=== PATIENT | male | born 1945 | race Caucasian/White ===

== ENCOUNTER 2018-03-26 13:45 | Emergency (ER) | payer MEDICARE ==
--- OUTSIDE RECORDS SUMMARY | 2018-03-26 14:08 | XMS REPORT ---
:1945 External Reference #:[id number] Author Organization [facility] Address [address] [place] [address] Phone [phone] Care Team Providers Name Role Phone Venita Matos M.D. Care Team Information [employer] Unavailable Payers Type Date Identification Numbers Payment Provider Subscriber Commercial Effective: Policy Number: Alfred CHELE Brenda Margarita 2006 [id number] Expires: 2012 Group Name: [employer] [address] [address] PayID: [id number] KARLA Asher [id number] Medicare Primary Effective: Policy Number: Medicare - Bswny Giulia Macias Margarita 2011 [id number] Expires: 2017 Group Name: [employer] [address] PayID: [id number] [place] [address] Medigap Part B Effective: Policy Number: Alfred CHELE Giulia Macias Margarita 2006 [id number] Expires: 2009 Group Number: [id number] [address] [address] PayID: [id number] KARLA Asher [id number] Medigap Part B Effective: Policy Number: Alfred Gutierrez Margarita 2012 [id number] Expires: 2015 Group Name: [employer] [address] [address] PayID: [id number] KARLA Asher [id number] Medigap Part B Effective: 2015 Policy Number: [id number] Aarp Giulia Lora Expires: 2017 PayID: [id number] [address] [place] [address] Commercial Effective: Policy Number: Lorena Lora 2017 [id number] PayID: [id number] [employer] [address] [address] [place] [address] Problems Date Description Provider Status Onset: 09/26/2010 Migraine without aura, not CARLEEN CliftonP-C Active refractory Onset: 09/26/2010 Allergy Rosemarie Chris PA-C Active Family History Date Family Member(s) Problem(s) Comments Father Cancer, Skin - thinks had non-melanoma type Social History Type Date Description Comments Marital Status Lives With Spouse Occupation Works in [employer]. retired from [employer] 2010. Worked for [employer] for years, retired 2006 Cigarette Use Former Cigarette Smoker Quit smoking at age 36, smoked x 15 years Smoking Patient is a former smoker Allergies, Adverse Reactions, Alerts Date Description Reaction Status Severity Comments 03/02/2004 NKDA active 01/21/2007 Peanut active Throat Tightening Medications Medication Date Status Form Strength Qnty SIG Indications Ordering Provider Amor 02/08 Active Tablets 5mg 60tab 2 tab by I82.431 s mouth twice Heetderks a day for MD the first week, then 1 tab twice per day. Epinephrine 10/25 Active Solution 0.3mg/0.3 2unit use as Auto-Inject ML s directed for P. systemic Blegen, allergic M.D. reaction and call 911 Vitamin D-3 12/20 Active Capsules 1000Unit 1 by mouth Venita every day P. Blegen, M.D. Doxycycline 12/23 Hx Capsules 100mg 56cap 1 by mouth R50.9 Venita Hyclate s twice a day P. - x 4 weeks as Blegen, 02/06 directed for M.D. /2018 lyme disease- take with full glass of water Cephalexin 12/15 Hx Capsules 500mg 14cap 1 tab by L02.416 Shaheed s mouth three Heetderks - times a day. MD 12/23 Epipen 2-Everett 10/19 Hx Solution 0.3mg/0.3 1unit use as Auto-Inject ML s directed for P. - systemic Blegen, 10/25 allergic M.D. reaction and call 911 Epinephrine 09/06 Hx Solution 0.3mg/0.3 2unit use as Auto-Inject ML s directed for P. - systemic Blegen, 10/19 allergic M.D. reaction and call 911- wait to fill until patient calls Levofloxacin 09/06 Hx Tablets 500mg 10tab 1 tab by Venita s qday for 10 P. - days for Blegen, 12/23 sinusitis M.D. Augmentin 08/18 Hx Tablets 875-125mg 20tab 1 take by [email or web address] Shaheed s mouth tablet Catalino - every , 09/06 hours for days for infection. Do not fill until patient. Cetirizine HCL 12/08 Hx Tablets 10mg 1 by mouth Venita as needed P. - allergies Blegen, 08/18 (usually M.D. just needs in November) Magnesium 12/08 Hx Tablets 200mg 1 by mouth Venita every day P. - Blegen, 02/06 M.D. Doxycycline 12/05 Hx Tablets 100mg 2tabs 2 tab by [id number] Shaheed Monohydrate /2015 mouth once Catalino Lynch MD 12/08 Osteo Bi-Flex 09/08 Hx Tablets 250-200mg Venita P. Strength - Blegen, 08/18 M.D. Aspirin 09/08 Hx Chewtabs 81mg 1 by mouth Venita every day P. - Blegen, 02/08 M.D. Magnesium 12/20 Hx Tablets 200mg 1 by mouth Venita every day P. - Blegen, 09/08 M.D. Amoxicillin 10/16 Hx Tablets 500mg 40tab take 1 528.4 s tablet by Glenn - mouth four [employer] 12/17 times a day /2014 x 10 days Epipen 2-Everett 06/23 Hx Solution 0.3mg/0.3 1unit use as Venita Auto-Inject ML s directed for P. - bee-sting Blegen, 09/06 allergy and M.D. /2016 call 911 Enoxaparin 06/02 Hx Solution 80mg/0.8M QS 0.74 Anum Sodium L milliliters Glenn, - subcutaneous [facility] 06/23 ly every hours x 5 days Warfarin Sodium 06/02 Hx Tablets 5mg 60tab take one-two Venita s tablets by P. - mouth every Blegen, 12/20 day as M.D. /2014 directed Hydrocodone/Saravanan 04/01 Hx Tablets 5-325mg 8tabs 1 po qhs prn 789.9 Venita taminophen pain, do not P. - drive after Blegen, 12/20 taking M.D. /2014 Isometheptene/D 09/26 Hx Capsules 65-325-10 20twe 1 or 2 po Shawnti ichloralphenazo 0mg nty qid prn evangelina [place]/Acetaminophe - migraine [facility]- n 04/09 Amitriptyline 09/26 Hx Tablets 10mg 30tab Take One Shawnti HCL s Tablet By Justin Rojo, - Mouth AT [facility] 04/10 Bedtime For Migraines Sumatriptan 09/26 Hx Tablets 50mg 18tab Take 1 Shawnti Succinate /2010 s Tablet AT Justin Rojo, - Onset Of [facility]- 03/26 Migraine; November Repeat Every 1 To 2 Hours as Needed; No More Than 4 Tablets In 24 Hours Augmentin 09/01 Hx Tablets 875-125mg 20tab 1 po bid Syed Oneal M.D. 11/30 Flonase 12/06 Hx Suspension 50mcg/Act 1unit one spray 381.01 Harriet s each nostril Abdi, - bid for 5 M.D., 04/10 days R.D. /2011 Glucosamine-Cho 09/30 Hx Capsules 500-400 Harriet ndroi Syed Patton M.D., 04/10 R.D. /2011 Augmentin 09/25 Hx Tablets 875mg 20tab 1 po bid Harriet Syed Calloway M.D., 09/01 R.D. /2010 Ergocalciferol 08/11 Hx Tablets 50,000Uni 10tab one po q ts s week as P. - directed Blegen, 10/26 then repeat M.D. bloodwork Flexeril 07/21 Hx Tablets 10mg 20tab one po qhs s prn muscle P. - spasm Blegen, 09/30 M.D. /2008 Physical 07/21 Hx eval and Venita Therapy treat right P. - shoulder and Blegen, 04/09 arm pain M.D. /2011 Doxycycline 05/[address] 100mg 2caps 2 po once Shawnti Hyclate Part possible Justin Rojo, - lyme disease [employer] 09/30 exposure Epipen 01/21 Hx Injection 0.3mg 1unit Use as s Directed prn P. - Severe Blegen, 06/23 Allergic M.D. /2013 Reaction- and call 911 Augmentin 08/13 Hx Tablets 500mg;125 28tab one po bid mg s for 14 days P. - Blegen, 01/20 M.D. /2006 Zithromax 09/07 Hx Tablets 500mg 3tabs 1 qd x 3 461.8 Marta Tri-Everett /2005 daysmay A. - repeat in [place], 01/20 days if sx [facility].N.P.C. /2006 persist, worsen Hydrocortisone 04/26 Hx Cream 2.5% 60g apply to Jona Rectal affected Saez, - area bid-qid M.D. 06/10 Levaquin 05/22 Hx Tablets 500mg 14tab One qd X 14 s Days P. - Blegen, 07/03 M.D. Ceftin 04/15 Hx Tablets 500mg 28tab One bid X14 s Days P. - Blegen, 07/03 M.D. /2002 Lancets 04/15 Hx 50uni Use as ts Directed To P. - Check FS Blegen, 07/03 qd-tid M.D. One Touch Ultra 04/15 Hx 100un Check FS Venita Test its qd-tid as P. - Directed Blegen, 07/03 M.D. /2002 Augmentin 11/27 Hx Tablets 875mg 28tab One bid X10 Marta /2001 s - 14 Days A. - [place], 07/03 F.N.P.C. /2002 Sudafed Hx Tablets 30mg 1 tab by Unknown /0000 mouth three - times a day 12/23 pressure Immunizations CPT Code Status Date Vaccine Lot # 09114 Given 12/09/2015 Prevnar-13 Pneumococcal Conjugate Vaccine [id number] 39987 Given 04/23/2012 Zoster Vaccine [id number] 74893 Given 04/10/2012 Pneumovax 23 (PPSV23) 65+ years or high risk 2 to [id number] 64 year old 14116 Given 04/10/2012 Tdap (Adacel) [id number] 21185 Given 04/28/2005 Influenza Virus Vaccine, 3 Yrs And Above 38046 Given 06/18/2002 Influenza Virus Vaccine, 3 Yrs And Above 09388 Given 01/16/2000 DT (Adult) 46970 Given 05/05/1999 Influenza Virus Vaccine, 3 Yrs And Above 60747 Given 05/20/1997 Influenza Virus Vaccine 26359 Given 04/16/1996 Influenza Virus Vaccine 41379 Refused 02/06/2018 Influenza Virus Vaccine, Quadrivalent, 3 Yr > Quad , Preserv Free 12900 Refused 08/19/2016 Influenza Virus Vaccine, Quadrivalent, 3 Yr > Quad , Preserv Free Vital Signs Date Vital Result Comment 02/25/2018 Weight 161.00 lb Weight in kg's 73.030 BP Systolic 122 mmHg BP Diastolic 80 mmHg Heart Rate 74 /min Body Temperature 97.4 F Respiratory Rate 16 /min O2 % BldC Oximetry 98 % 02/08/2018 Weight 159.00 lb Weight in kg's 72.122 BP Systolic 120 mmHg BP Diastolic 80 mmHg Heart Rate 64 /min Body Temperature 97.7 F Respiratory Rate 16 /min 02/06/2018 Weight 160.00 lb Weight in kg's 72.576 BP Systolic 120 mmHg BP Diastolic 70 mmHg Heart Rate 72 /min Body Temperature 97.7 F Respiratory Rate 16 /min 12/23/2016 Weight 160.00 lb Weight in kg's 72.576 BP Systolic 120 mmHg BP Diastolic 63 mmHg Heart Rate 92 /min Body Temperature 101.6 F 12/15/2016 Weight 166.00 lb Weight in kg's 75.298 BP Systolic 128 mmHg BP Diastolic 80 mmHg Heart Rate 64 /min Body Temperature 97.0 F Respiratory Rate 20 /min 09/06/2016 Weight 166.00 lb Weight in kg's 75.298 BP Systolic 156 mmHg BP Diastolic 90 mmHg Heart Rate 72 /min Body Temperature 96.8 F O2 % BldC Oximetry 97 % 08/18/2016 Weight 167.00 lb Weight in kg's 75.751 BP Systolic 136 mmHg BP Diastolic 82 mmHg Heart Rate 98 /min Body Temperature 97.1 F Respiratory Rate 16 /min O2 % BldC Oximetry 97 % 12/09/2015 Weight 169.00 lb Weight in kg's 76.658 BP Systolic 122 mmHg ,repeat 128/76 BP Diastolic 64 mmHg ,repeat 128/76 Heart Rate 88 /min Height 74 inches 6'2" BMI (Body Mass Index) 21.7 kg/m2 12/06/2015 Weight 171.00 lb Weight in kg's 77.566 BP Systolic 140 mmHg BP Diastolic 70 mmHg Heart Rate 75 /min Body Temperature 98.2 F 09/08/2015 Weight 163.00 lb Weight in kg's 73.937 BP Systolic 175 mmHg BP Diastolic 78 mmHg Heart Rate 72 /min 12/17/2014 Weight 165.00 lb Weight in kg's 74.844 BP Systolic 120 mmHg BP Diastolic 70 mmHg Heart Rate 62 /min 10/16/2014 BP Systolic 90 mmHg BP Diastolic 60 mmHg Heart Rate 76 /min Body Temperature 97.7 F Tylenol AT 4Am O2 % BldC Oximetry 98 % 08/20/2014 Weight 162.00 lb Weight in kg's 73.483 BP Systolic 140 mmHg 138/84 BP Diastolic 80 mmHg 138/84 Heart Rate 68 /min Height 74 inches 6'2" BMI (Body Mass Index) 20.8 kg/m2 06/23/2014 Weight 163.00 lb Weight in kg's 73.937 BP Systolic 126 mmHg BP Diastolic 66 mmHg Heart Rate 76 /min 06/02/2014 Weight 165.00 lb Weight in kg's 74.844 BP Systolic 138 mmHg BP Diastolic 72 mmHg Heart Rate 68 /min 04/14/2014 Weight 162.00 lb Weight in kg's 73.483 BP Systolic 126 mmHg BP Diastolic 70 mmHg Heart Rate 80 /min Body Temperature 97.6 F Height 73.5 inches 6'1.50" BMI (Body Mass Index) 21.1 kg/m2 04/01/2013 Weight 159.00 lb Weight in kg's 72.122 BP Systolic 126 mmHg BP Diastolic 74 mmHg Heart Rate 100 /min Body Temperature 98.5 F 03/26/2013 Weight 159.00 lb Weight in kg's 72.122 BP Systolic 120 mmHg Repeat 126/82 BP Diastolic 84 mmHg Repeat 126/82 Heart Rate 88 /min Height 74 inches 6'2" BMI (Body Mass Index) 20.4 kg/m2 02/25/2013 Weight 164.00 lb Weight in kg's 74.390 BP Systolic 144 mmHg BP Diastolic 86 mmHg Heart Rate 92 /min Body Temperature 96.7 F 04/10/2012 Weight 160.00 lb Weight in kg's 72.576 BP Systolic 130 mmHg BP Diastolic 80 mmHg Heart Rate 96 /min Height 74 inches 6'2" BMI (Body Mass Index) 20.5 kg/m2 09/28/2011 Weight 162.00 lb Weight in kg's 73.483 BP Systolic 130 mmHg BP Diastolic 80 mmHg Heart Rate 72 /min 11/03/2010 Weight 161.00 lb Weight in kg's 73.030 BP Systolic 120 mmHg BP Diastolic 80 mmHg Heart Rate 84 /min 10/03/2010 Weight 159.00 lb Weight in kg's 72.122 BP Systolic 120 mmHg BP Diastolic 78 mmHg Heart Rate 72 /min 09/26/2010 Weight 164.00 lb Weight in kg's 74.390 BP Systolic 120 mmHg BP Diastolic 84 mmHg Heart Rate 56 /min Body Temperature 97.7 F 09/01/2010 Weight 163.00 lb Weight in kg's 73.937 BP Systolic 120 mmHg BP Diastolic 80 mmHg Heart Rate 88 /min Body Temperature 97.6 F 02/09/2010 Weight 158.00 lb Weight in kg's 71.669 BP Systolic 124 mmHg BP Diastolic 86 mmHg Heart Rate 69 /min Body Temperature 96.1 F O2 % BldC Oximetry 98 % 12/06/2009 Weight 160.00 lb Weight in kg's 72.576 BP Systolic 142 mmHg BP Diastolic 80 mmHg Heart Rate 88 /min Body Temperature 97.7 F O2 % BldC Oximetry 98 % AT Room Air 03/08/2009 Weight 162.00 lb Weight in kg's 73.483 BP Systolic 126 mmHg BP Diastolic 80 mmHg Heart Rate 72 /min Body Temperature 98.2 F 09/30/2008 Weight 164.00 lb Weight in kg's 74.390 BP Systolic 120 mmHg BP Diastolic 78 mmHg Heart Rate 72 /min 09/25/2008 Weight 164.00 lb with boots Weight in kg's 74.390 BP Systolic 112 mmHg BP Diastolic 70 mmHg Heart Rate 68 /min Body Temperature 97.4 F 07/21/2008 Weight 159.00 lb Weight in kg's 72.122 BP Systolic 130 mmHg BP Diastolic 78 mmHg Heart Rate 72 /min 05/02/2007 Weight 150.00 lb Weight in kg's 68.040 BP Systolic 122 mmHg BP Diastolic 74 mmHg Heart Rate 60 /min Body Temperature 99.2 F Height 74 inches 6'2" BMI (Body Mass Index) 19.3 kg/m2 01/21/2007 Weight 150.50 lb Weight in kg's 68.267 BP Systolic 118 mmHg BP Diastolic 70 mmHg Heart Rate 74 /min Height 74 inches 6'2" BMI (Body Mass Index) 19.3 kg/m2 08/13/2006 Weight 161.00 lb Weight in kg's 73.030 BP Systolic 130 mmHg BP Diastolic 68 mmHg Heart Rate 64 /min Body Temperature 98.0 F Oral Height 73 inches 6'1" BMI (Body Mass Index) 21.2 kg/m2 09/07/2005 Weight 153.00 lb Weight in kg's 69.401 BP Systolic 98 mmHg BP Diastolic 66 mmHg Body Temperature 98.2 F Height 73 inches 6'1" BMI (Body Mass Index) 20.2 kg/m2 04/26/2004 Weight 155.00 lb Weight in kg's 70.308 BP Systolic 110 mmHg BP Diastolic 70 mmHg Height 73 inches 6'1" BMI (Body Mass Index) 20.4 kg/m2 03/02/2004 Weight 155.00 lb Weight in kg's 70.308 BP Systolic 122 mmHg BP Diastolic 72 mmHg Heart Rate 60 /min Height 73 inches 6'1" BMI (Body Mass Index) 20.4 kg/m2 11/11/2003 Weight 165.00 lb Weight in kg's 74.844 BP Systolic 110 mmHg BP Diastolic 65 mmHg 07/03/2003 Weight 156.00 lb Weight in kg's 70.762 BP Systolic 100 mmHg BP Diastolic 70 mmHg Heart Rate 60 /min Body Temperature 96.3 F Respiratory Rate 18 /min 06/18/2002 Weight 152.00 lb Weight in kg's 68.9 BP Systolic 104 mmHg BP Diastolic 64 mmHg 05/13/2002 Weight 146.00 lb Weight in kg's 66.2 BP Systolic 120 mmHg BP Diastolic 80 mmHg Heart Rate 76 /min Respiratory Rate 18 /min 04/15/2002 Weight 149.50 lb Weight in kg's 67.8 BP Systolic 122 mmHg BP Diastolic 78 mmHg Heart Rate 60 /min 11/27/2001 Weight 157.00 lb BP Systolic 108 mmHg BP Diastolic 70 mmHg Heart Rate 68 /min Body Temperature 101.2 F Results Test Date Test Result H/L Range Note Lyme Western Blot 02/06/2018 Lyme Disease IgG Ab WB Negative Negative Lyme Disease IgG Bands Present p41,p39,p23 kDa Lyme Disease IgM Ab WB Positive Negative Lyme Disease IgM Bands Present p41,p23 kDa Lyme Disease Interpretation See Comment 1 CBC Auto Diff 02/06/2018 White Blood Count 7.1 10^3/uL 3.5-10.8 Red Blood Count 4.71 10^6/uL 4.00-5.40 Hemoglobin 15.0 g/dL 14.0-18.0 Hematocrit 45 % 42-52 Mean Corpuscular Volume 95 fL High 80-94 Mean Corpuscular Hemoglobin 32 pg High 27-31 Mean Corpuscular HGB Conc 34 g/dL 31-36 Red Cell Distribution Width 13 % 10.5-15 Platelet Count 222 10^3/uL 150-450 Mean Platelet Volume 8.2 um3 7.4-10.4 Abs Neutrophils 4.5 10^3/uL 1.5-7.7 Abs Lymphocytes 1.8 10^3/uL 1.0-4.8 Abs Monocytes 0.7 10^3/uL 0-0.8 Abs Eosinophils 0.2 10^3/uL 0-0.6 Abs Basophils 0 10^3/uL 0-0.2 Abs Nucleated RBC 0 10^3/uL Granulocyte % 62.6 % 38-83 Lymphocyte % 24.6 % Low 25-47 Monocyte % 9.9 % High 0-7 Eosinophil % 2.4 % 0-6 Basophil % 0.5 % 0-2 Nucleated Red Blood Cells % 0.1 Comp Metabolic Panel 02/06/2018 Sodium 140 mmol/L 135-145 Potassium 4.8 mmol/L 3.5-5.0 Chloride 105 mmol/L 101-111 Co2 Carbon Dioxide 28 mmol/L 22-32 Anion Gap 7 mmol/L 2-11 Glucose 79 mg/dL 70-100 Blood Urea Nitrogen 15 mg/dL 6-24 Creatinine 1.23 mg/dL High 0.67-1.17 BUN/Creatinine Ratio 12.2 8-20 Calcium 9.2 mg/dL 8.6-10.3 Total Protein 6.8 g/dL 6.4-8.9 Albumin 4.3 g/dL 3.2-5.2 Globulin 2.5 g/dL 2-4 Albumin/Globulin Ratio 1.7 1-3 Total Bilirubin 1.40 mg/dL High 0.2-1.0 Alkaline Phosphatase 47 U/L 34-104 Alt 11 U/L 7-52 Ast 16 U/L 13-39 Egfr Non- 58.0 >60 Egfr 70.2 >60 2 Laboratory test finding 02/06/2018 Magnesium 2.0 mg/dL 1.9-2.7 3 Vitamin D Total 25(Oh) 33.7 ng/mL 20-50 4 Laboratory test finding 01/08/2018 PSA Screening 11.061 ng/mL High 0-4.0 5 Basic Metabolic Panel 09/04/2017 Sodium 138 mmol/L 133-145 Chloride 106 mmol/L 101-111 Co2 Carbon Dioxide 27 mmol/L 22-32 Glucose 105 mg/dL High 70-100 Blood Urea Nitrogen 17 mg/dL 6-24 Creatinine 1.13 mg/dL 0.67-1.17 BUN/Creatinine Ratio 15.0 8-20 Calcium 9.1 mg/dL 8.6-10.3 Egfr Non- 64.0 >60 Egfr 82.3 >60 6 Potassium TNP mmol/L 3.5-5.0 7 Anion Gap 5 mmol/L 2-11 Laboratory test 07/30/2017 PSA Screening 10.961 ng/mL High 0-4.0 8 finding Laboratory test 05/22/2017 D Dimer Quantitative 268 ng/mL High Less Than 230 9 finding Laboratory test 01/25/2017 PSA Screening 9.725 ng/mL High 0-4.0 10 finding Tick-Borne Panel 01/03/2017 Babesia microti PCR Negative Negative PCR Blood Babesia ducani Negative Negative Babesia divergens/Mo-1 Negative Negative 11 Anaplasma phagocytophilum Negative Negative Ehrlichia chaffeensis Negative Negative Ehrlichia ewingii/canis Negative Negative Ehrlichia muris-like Negative Negative 12 B. miyamotoi PCR, B Negative Negative 13 Laboratory test 12/23/2016 Urine Culture And SEE RESULT BELOW 14 finding Sensitivities Lyme Western Blot 12/23/2016 Lyme Disease IgG Ab WB Negative Negative Lyme Disease IgG Bands Present p41, p23, kDa Lyme Disease IgM Ab WB Positive Negative Lyme Disease IgM Bands Present p41, p23, kDa Lyme Disease Interpretation See Comment 15 CBC Auto Diff 12/23/2016 White Blood Count 7.3 10^3/uL 3.5-10.8 Red Blood Count 5.28 10^6/uL 4.0-5.4 Hemoglobin 15.9 g/dL 14.0-18.0 Hematocrit 48 % 42-52 Mean Corpuscular Volume 91 fL 80-94 Mean Corpuscular Hemoglobin 30 pg 27-31 Mean Corpuscular HGB Conc 33 g/dL 31-36 Red Cell Distribution Width 14 % 10.5-15 Platelet Count 150 10^3/uL 150-450 Mean Platelet Volume 9 um3 7.4-10.4 Abs Neutrophils 5.9 10^3/uL 1.5-7.7 Abs Lymphocytes 0.5 10^3/uL Low 1.0-4.8 Abs Monocytes 0.7 10^3/uL 0-0.8 Abs Eosinophils 0 10^3/uL 0-0.6 Abs Basophils 0.1 10^3/uL 0-0.2 Abs Nucleated RBC 0.01 10^3/uL Granulocyte % 81.8 % 38-83 Lymphocyte % 7.3 % Low 25-47 Monocyte % 9.9 % High 1-9 Eosinophil % 0.1 % 0-6 Basophil % 0.9 % 0-2 Nucleated Red Blood Cells % 0.1 Comp Metabolic Panel 12/23/2016 Sodium 135 mmol/L 133-145 Potassium 4.9 mmol/L 3.5-5.0 Chloride 100 mmol/L Low 101-111 Co2 Carbon Dioxide 25 mmol/L 22-32 Anion Gap 10 mmol/L 2-11 Glucose 111 mg/dL High 70-100 Blood Urea Nitrogen 16 mg/dL 6-24 Creatinine 1.30 mg/dL High 0.67-1.17 BUN/Creatinine Ratio 12.3 8-20 Calcium 9.3 mg/dL 8.6-10.3 Total Protein 7.0 g/dL 6.4-8.9 Albumin 4.3 g/dL 3.2-5.2 Globulin 2.7 g/dL 2-4 Albumin/Globulin Ratio 1.6 1-3 Total Bilirubin 1.20 mg/dL High 0.2-1.0 Alkaline Phosphatase 55 U/L 34-104 Alt 17 U/L 7-52 Ast 26 U/L 13-39 Egfr Non- 54.6 >60 Egfr 70.2 >60 16 Laboratory test finding 12/23/2016 Magnesium 2.0 mg/dL 1.9-2.7 Urine DIP 12/23/2016 Leukocytes NEG Neg Urine Nitrites NEG Neg Urobilinogen NORM Norm Total Protein, Urine TRACE Neg Urine pH 8 High 5-6 Urine Blood about 50 Neg Specific Molena 1.010 1.01-1.02 Urine Ketones ++ Neg Urine Bilirubin NEG Neg Urine Glucose NORM Norm Laboratory test 07/21/2016 PSA Screening 9.373 ng/mL High 0-4.0 17 finding Laboratory test 05/16/2016 D Dimer Quantitative 307 ng/mL High Less Than 230 18 finding Laboratory test 03/08/2016 PSA Screening 10.255 ng/mL High 0-4.0 19 finding Laboratory test 12/09/2015 Vitamin D Total 27.4 ng/mL Low 30-50 20 finding 25(Oh) CBC Auto Diff 12/09/2015 White Blood Count 6.2 10^3/uL 3.5-10.8 Red Blood Count 4.98 10^6/uL 4.0-5.4 Hemoglobin 15.1 g/dL 14.0-18.0 Hematocrit 48 % 42-52 Mean Corpuscular Volume 96 fL High 80-94 Mean Corpuscular Hemoglobin 30 pg 27-31 Mean Corpuscular HGB Conc 32 g/dL 31-36 Red Cell Distribution Width 13 % 10.5-15 Platelet Count 249 10^3/uL 150-450 Mean Platelet Volume 8 um3 7.4-10.4 Abs Neutrophils 3.6 10^3/uL 1.5-7.7 Abs Lymphocytes 1.8 10^3/uL 1.0-4.8 Abs Monocytes 0.6 10^3/uL 0-0.8 Abs Eosinophils 0.2 10^3/uL 0-0.6 Abs Basophils 0 10^3/uL 0-0.2 Abs Nucleated RBC 0 10^3/uL Granulocyte % 58.1 % 38-83 Lymphocyte % 28.6 % 25-47 Monocyte % 9.6 % High 1-9 Eosinophil % 3.0 % 0-6 Basophil % 0.7 % 0-2 Nucleated Red Blood Cells % 0.1 Comp Metabolic Panel 12/09/2015 Sodium 140 mmol/L 133-145 Potassium 4.8 mmol/L 3.5-5.0 Chloride 106 mmol/L 101-111 Co2 Carbon Dioxide 28 mmol/L 22-32 Anion Gap 6 mmol/L 2-11 Glucose 64 mg/dL Low 70-100 Blood Urea Nitrogen 18 mg/dL 6-24 Creatinine 1.18 mg/dL High 0.67-1.17 BUN/Creatinine Ratio 15.3 8-20 Calcium 9.4 mg/dL 8.6-10.3 Total Protein 6.5 g/dL 6.4-8.9 Albumin 4.4 g/dL 3.2-5.2 Globulin 2.1 g/dL 2-4 Albumin/Globulin Ratio 2.1 1-3 Total Bilirubin 1.50 mg/dL High 0.2-1.0 Alkaline Phosphatase 44 U/L 34-104 Alt 13 U/L 7-52 Ast 20 U/L 13-39 Egfr Non- 61.2 >60 Egfr 78.7 >60 21 Laboratory test 12/09/2015 TSH (Thyroid Stim 1.15 ?IU/mL 0.34-5.60 22 finding Horm) Laboratory test 11/02/2015 Surgical Pathology SEE RESULT 23 finding BELOW Laboratory test 08/31/2015 PSA Screening 9.457 ng/mL High 0-4.0 24 finding Laboratory test 05/21/2015 D Dimer 375 ng/mL High Less Than 230 25 finding Quantitative Laboratory test 02/23/2015 D Dimer 349 ng/mL High Less Than 230 26 finding Quantitative Factor II 02/23/2015 Prothrombin 73819 Negative Negative (Prothrombin) Mutation Genoty Prothrombin [id number] Interp See Comment 27 Prothrombin Mutation Review By Gwendolyn Pacheco M.D. 28 Inr/Protime 02/05/2015 Inr 0.92 0.78-1.07 Laboratory test finding 01/12/2015 Phospholipid Ab IgA < 4.0 APL 29 Cardiolipin Igg/Igm 01/12/2015 Phospholipid Ab IgM, S < 4.0 MPL 30 Phospholipid Ab IgG < 4.0 GPL 31 Factor 5 Leiden Mutation 01/12/2015 Factor V Leiden Heterozygous Negative Mutation Factor V Leiden Interpretation See Comment 32 Factor V Leiden Reviewed By Dasia Schofield <SEE NOTE> 33 Laboratory test finding 01/12/2015 Homocysteine 13 mcmol/L 34 Lupus Anticoagulant AB 01/12/2015 Prothrombin Time(Lac) 10.5 sec 35 Lac Inr 1.0 Lac Aptt 33 sec 26 - 36 Lac DRVVT Screen Ratio 0.9 ratio 0.0 - 1.1 Lupus Anticoagulant Interpreta See Comment 36 Laboratory test finding 01/12/2015 Protein C Activity 109 % 70 - 150 37 Protein S Activity 100 % 65 - 160 38 Anti Thrombin III Activity 93 % 80 - 130 39 Inr/Protime 12/09/2014 Inr 2.38 High 0.78-1.07 Inr/Protime 11/17/2014 Inr 2.26 High 0.78-1.07 Inr/Protime 11/02/2014 Inr 2.72 High 0.78-1.07 Inr/Protime 10/24/2014 Inr 2.23 High 0.78-1.07 Inr/Protime 10/22/2014 Inr 5.61 High 0.78-1.07 40 Comp Metabolic Panel 10/17/2014 Sodium 136 mmol/L 133-145 Potassium 4.2 mmol/L 3.5-5.0 Chloride 102 mmol/L 101-111 Co2 Carbon Dioxide 28 mmol/L 22-32 Anion Gap 6 mmol/L 2-11 Glucose 85 mg/dL 70-100 Blood Urea Nitrogen 18 mg/dL 6-24 Creatinine 1.31 mg/dL High 0.67-1.17 BUN/Creatinine Ratio 13.7 8-20 Calcium 8.5 mg/dL Low 8.6-10.3 Total Protein 6.7 g/dL 6.4-8.9 Albumin 4.2 g/dL 3.2-5.2 Globulin 2.5 g/dL 2-4 Albumin/Globulin Ratio 1.7 1-3 Total Bilirubin 1.10 mg/dL High 0.2-1.0 Alkaline Phosphatase 49 U/L 34-104 Alt 15 U/L 7-52 Ast 21 U/L 13-39 Egfr Non- 54.4 >60 Egfr 70.0 >60 41 CBC Auto Diff 10/16/2014 White Blood Count 4.6 10^3/uL Low 4.8-10.8 Red Blood Count 5.26 10^6/uL 4.0-5.4 Hemoglobin 16.6 g/dL 14.0-18.0 Hematocrit 49 % 42-52 Mean Corpuscular Volume 93 fL 80-94 Mean Corpuscular Hemoglobin 32 pg High 27-31 Mean Corpuscular HGB Conc 34 g/dL 31-36 Red Cell Distribution Width 14 % 10.5-15 Platelet Count 151 10^3/uL 150-450 Mean Platelet Volume 9 um3 7.4-10.4 Abs Neutrophils 2.8 10^3/uL 1.5-7.7 Abs Lymphocytes 1.0 10^3/uL 1.0-4.8 Abs Monocytes 0.6 10^3/uL 0-0.8 Abs Eosinophils 0.1 10^3/uL 0-0.6 Abs Basophils 0 10^3/uL 0-0.2 Abs Nucleated RBC 0.01 10^3/uL Granulocyte % 61.1 % 38-83 Lymphocyte % 22.9 % Low 25-47 Monocyte % 14.1 % High 1-9 Eosinophil % 1.1 % 0-6 Basophil % 0.8 % 0-2 Nucleated Red Blood Cells % 0.3 Comp Metabolic Panel 10/16/2014 Sodium 135 mmol/L 133-145 Potassium TNP mmol/L 3.5-5.0 Chloride 102 mmol/L 101-111 Co2 Carbon Dioxide 25 mmol/L 22-32 Anion Gap TNP mmol/L 2-11 Glucose 93 mg/dL 70-100 Blood Urea Nitrogen 20 mg/dL 6-24 Creatinine 1.42 mg/dL High 0.67-1.17 BUN/Creatinine Ratio 14.1 8-20 Calcium 8.9 mg/dL 8.6-10.3 Total Protein 7.0 g/dL 6.4-8.9 Albumin 4.4 g/dL 3.2-5.2 Globulin 2.6 g/dL 2-4 Albumin/Globulin Ratio 1.7 1-3 Total Bilirubin 1.20 mg/dL High 0.2-1.0 Alkaline Phosphatase 43 U/L 34-104 Alt 17 U/L 7-52 Ast TNP U/L 13-39 42 Egfr Non- 49.6 >60 Egfr 63.8 >60 43 Inr/Protime 10/16/2014 Inr 2.38 High 0.78-1.07 Inr/Protime 10/08/2014 Inr 1.84 High 0.78-1.07 Inr/Protime 09/10/2014 Inr 2.16 High 0.78-1.07 44 CBC No Diff 08/20/2014 White Blood Count 8.8 10^3/uL 4.8-10.8 Red Blood Count 4.91 10^6/uL 4.0-5.4 Hemoglobin 15.2 g/dL 14.0-18.0 Hematocrit 46 % 42-52 Mean Corpuscular Volume 93 fL 80-94 Mean Corpuscular Hemoglobin 31 pg 27-31 Mean Corpuscular HGB Conc 33 g/dL 31-36 Red Cell Distribution Width 13 % 10.5-15 Platelet Count 287 10^3/uL 150-450 Mean Platelet Volume 8 um3 7.4-10.4 Vitamin D, 25 Hydroxy 08/20/2014 25-Hydroxy Vitamin D2 <4.0 ng/mL 25-Hydroxy Vitamin D3 34 ng/mL 25-Hydroxy Vitamin D Total 34 ng/mL 45 Laboratory test finding 08/20/2014 Magnesium 1.9 mg/dL 1.9-2.7 Urine DIP 08/20/2014 Specific Molena 1.02 1.01-1.02 Urine pH 5 5-6 Leukocytes + Neg Urine Nitrites NEG Neg Total Protein, Urine NEG Neg Urine Glucose NORM Norm Urine Ketones SMALL Neg Urobilinogen NORM Norm Urine Bilirubin NEG Neg Urine Blood NEG Neg Inr/Protime 08/20/2014 Inr 2.14 High 0.78-1.07 46 Comp Metabolic Panel 08/20/2014 Sodium 138 mmol/L 133-145 Potassium 4.6 mmol/L 3.5-5.0 Chloride 103 mmol/L 101-111 Co2 Carbon Dioxide 28 mmol/L 22-32 Anion Gap 7 mmol/L 2-11 Glucose 84 mg/dL 70-100 Blood Urea Nitrogen 18 mg/dL 6-24 Creatinine 1.17 mg/dL 0.67-1.17 BUN/Creatinine Ratio 15.4 8-20 Calcium 9.5 mg/dL 8.6-10.3 Total Protein 7.3 g/dL 6.4-8.9 Albumin 4.6 g/dL 3.2-5.2 Globulin 2.7 g/dL 2-4 Albumin/Globulin Ratio 1.7 1-3 Total Bilirubin 1.50 mg/dL High 0.2-1.0 Alkaline Phosphatase 53 U/L 34-104 Alt 10 U/L 7-52 Ast 15 U/L 13-39 Egfr Non- 62.0 >60 Egfr 79.7 >60 47 Inr/Protime 08/11/2014 Inr 3.44 High 0.85-1.06 Inr/Protime 07/28/2014 Inr 2.18 High 0.85-1.06 Inr/Protime 07/21/2014 Inr 2.44 High 0.85-1.06 Inr/Protime 07/13/2014 Inr 1.83 High 0.85-1.06 Inr/Protime 06/29/2014 Inr 1.91 High 0.85-1.06 Inr/Protime 06/22/2014 Inr 1.78 High 0.85-1.06 Inr/Protime 06/15/2014 Inr 2.50 High 0.85-1.06 Urinalysis Profile 06/12/2014 Urine Color Ena Urine Appearance Cloudy Urine Specific Molena 1.010 1.010-1.030 Urine pH 6.0 5-9 Urine Urobilinogen Negative Negative Urine Ketones Negative Negative Urine Protein 2+(100 mg/dL) Negative Urine Leukocytes Negative Negative Urine Blood 3+ Negative Urine Nitrite Negative Negative Urine Bilirubin Negative Negative Urine Glucose Negative Negative Urine White Blood Cell Trace Absent Urine Red Blood Cell 3+(>10/hpf) Absent Urine Bacteria Absent Absent Urine Culture And 06/12/2014 Urine Culture (SEE NOTE) 48 Sensitivities CBC No Diff 06/12/2014 White Blood Count 8.9 10^3/uL 4.8-10.8 Red Blood Count 4.83 10^6/uL 4.0-5.4 Hemoglobin 15.2 g/dL 14.0-18.0 Hematocrit 45 % 42-52 Mean Corpuscular Volume 93 fL 80-94 Mean Corpuscular Hemoglobin 31 pg 27-31 Mean Corpuscular HGB Conc 34 g/dL 31-36 Red Cell Distribution Width 13 % 10.5-15 Platelet Count 202 10^3/uL 150-450 Mean Platelet Volume 8 um3 7.4-10.4 Inr/Protime 06/12/2014 Inr 2.20 High 0.85-1.06 Inr/Protime 06/08/2014 Inr 1.40 High 0.85-1.06 Inr/Protime 06/02/2014 Inr 0.90 0.85-1.06 Comp Metabolic Panel 06/02/2014 Sodium 139 mmol/L 133-145 Potassium 4.7 mmol/L 3.5-5.0 49 Chloride 105 mmol/L 101-111 Co2 Carbon Dioxide 29 mmol/L 22-32 Anion Gap 5 mmol/L 2-11 Glucose 82 mg/dL 70-100 Blood Urea Nitrogen 17 mg/dL 6-24 Creatinine 1.09 mg/dL 0.67-1.17 BUN/Creatinine Ratio 15.6 8-20 Calcium 9.0 mg/dL 8.6-10.3 Total Protein 6.6 g/dL 6.4-8.9 Albumin 4.2 g/dL 3.2-5.2 Globulin 2.4 g/dL 2-4 Albumin/Globulin Ratio 1.8 1-3 Total Bilirubin 1.20 mg/dL High 0.2-1.0 Alkaline Phosphatase 47 U/L 34-104 Alt 10 U/L 7-52 Ast 14 U/L 13-39 Egfr Non- 67.3 >60 Egfr 86.5 >60 50 Laboratory test finding 06/02/2014 Activated Partial 39.7 seconds High 24.0-36.1 Thrombo Time CBC Auto Diff 06/02/2014 White Blood Count 6.6 10^3/uL 4.8-10.8 Red Blood Count 4.63 10^6/uL 4.0-5.4 Hemoglobin 14.3 g/dL 14.0-18.0 Hematocrit 44 % 42-52 Mean Corpuscular Volume 96 fL High 80-94 Mean Corpuscular Hemoglobin 31 pg 27-31 Mean Corpuscular HGB Conc 32 g/dL 31-36 Red Cell Distribution Width 13 % 10.5-15 Platelet Count 214 10^3/uL 150-450 Mean Platelet Volume 8 um3 7.4-10.4 Abs Neutrophils 4.0 10^3/uL 1.5-7.7 Abs Lymphocytes 1.7 10^3/uL 1.0-4.8 Abs Monocytes 0.6 10^3/uL 0-0.8 Abs Eosinophils 0.3 10^3/uL 0-0.6 Abs Basophils 0 10^3/uL 0-0.2 Abs Nucleated RBC 0 10^3/uL Granulocyte % 60.7 % 38-83 Lymphocyte % 25.7 % 25-47 Monocyte % 9.0 % 1-9 Eosinophil % 4.1 % 0-6 Basophil % 0.5 % 0-2 Nucleated Red Blood Cells % 0.1 Laboratory test finding 05/25/2014 PSA Screening 7.020 ng/mL High 0-4.0 51 Laboratory test finding 05/27/2013 PSA Diagnostic 7.212 ng/mL High 0- 4.000 52 Urine DIP 04/01/2013 Leukocytes trace Neg Urine Nitrites neg Neg Urine pH 5 5-6 Total Protein, Urine 30 High Neg Urine Glucose norm Norm Urine Ketones large +++ Neg Urobilinogen norm Norm Urine Bilirubin + Neg Urine Blood trace Neg Specific [place]ena 1.025 High 1.01-1.02 Urine Culture And 04/01/2013 Urine Culture (SEE NOTE) 53 Sensitivities Lyme Western Blot 03/26/2013 Lyme Disease IgG Ab Negative Negative WB Lyme Disease IgG Bands Present p41, p23, kDa Lyme Disease IgM Ab WB Negative Negative Lyme Disease IgM Bands Present p23, kDa Lyme Disease Interpretation See Comment 54 Vitamin D, 25 Hydroxy 03/26/2013 25-Hydroxy Vitamin D2 <4.0 ng/mL 25-Hydroxy Vitamin D3 37 ng/mL 25-Hydroxy Vitamin D Total 37 ng/mL 55 Comp Metabolic Panel 03/26/2013 Sodium 140 mmol/L 133-145 Potassium 4.7 mmol/L 3.5-5.0 Chloride 105 mmol/L 101-111 Co2 Carbon Dioxide 28.0 mmol/L 22-32 Anion Gap 7.0 mmol/L 2-11 Glucose 87 mg/dL 70-100 Blood Urea Nitrogen 15 mg/dL 6-24 Creatinine 1.20 mg/dL 0.50-1.40 BUN/Creatinine Ratio 12.5 8-20 Calcium 9.2 mg/dL 8.1-9.9 Total Protein 6.2 g/dL 6.2-8.1 Albumin 4.1 g/dL 3.2-5.2 Globulin 2.1 g/dL 2-4 Albumin/Globulin Ratio 2.0 1-3 Total Bilirubin 2.3 mg/dL High 0.4-1.5 Alkaline Phosphatase 48 U/L 30-110 Alt 13 U/L Low 14-54 Ast 21 U/L 12-42 Egfr Non- 60.4 >60 Egfr 77.7 >60 56 Laboratory test finding 03/26/2013 Hemoglobin A1c 5.5 % Less than 6.0 57 CBC No Diff 03/26/2013 White Blood Count 7.5 10^3/uL 4.8-10.8 Red Blood Count 4.65 10^6/uL 4.0-5.4 Hemoglobin 14.4 g/dL 14.0-18.0 Hematocrit 44 % 42-52 Mean Corpuscular Volume 96 fL High 80-94 Mean Corpuscular Hemoglobin 31 pg 27-31 Mean Corpuscular HGB Conc 33 g/dL 31-36 Red Cell Distribution Width 13 % 10.5-15 Platelet Count 194 10^3/uL 150-450 Mean Platelet Volume 9 um3 7.4-10.4 Lipid Profile (Trig/Chol/HDL) 03/26/2013 Triglycerides 65 mg/dL 40-200 Cholesterol 177 mg/dL Less than 200 HDL Cholesterol 50 mg/dL 40-60 58 Cholesterol/HDL Ratio 3.5 Average 1-4.44 LDL Cholesterol 114.0 High Less Than 100 59 Celiac Panel 03/26/2013 Immunoglobulin A 111 mg/dL 61 - 356 Tissue Transglutaminase IgA Ab <1.2 U/mL 60 Celiac Interpretation See Comment 61 Laboratory test finding 03/26/2013 Peanut Allergen IgE 1.07 kU/L 62 TSH (Thyroid Stimulating Horm) 1.63 miu/mL 0.34-5.60 Free T4 0.93 ng/mL 0.61-1.24 Urine DIP 03/26/2013 Leukocytes TRACE Neg Urine Nitrites NEG Neg Urine pH 5 5-6 Total Protein, Urine 30 High Neg Urine Glucose NORM Norm Urine Ketones NEG Neg Urobilinogen NORM Norm Urine Bilirubin NEG Neg Urine Blood NEG Neg Specific [place] 1.03 High 1.01-1.02 Laboratory test finding 11/22/2012 PSA Diagnostic 6.29 ng/mL High 0-4.0 63 Laboratory test finding 05/30/2012 PSA Diagnostic 6.45 NG/ML High 0-4.0 64 Vitamin D, 25 Hydroxy 04/10/2012 25-Hydroxy Vitamin D2 <4.0 ng/mL () 25-Hydroxy Vitamin D3 38 ng/mL () 25-Hydroxy Vitamin D Total 38 ng/mL () 65 CBC Auto Diff 04/10/2012 White Blood Count 6.7 CUMM 4.8-10.8 Red Cell Count 4.69 CUMM 4.6-6.2 Hemoglobin 15.1 g/dL 14.0-18.0 Hematocrit 45 % 42-52 Mean Corpuscular Volume 96 um3 High 80-94 Mean Corpuscular Hemoglob 32 pg High 27-31 Mean Corpuscular HGB Cone 34 g/dL 32-36 Redcell Distribution WDTH 13 % 10.5-15 Platelet Count 223 CUMM 150-450 Mean Platelet Volume 9.6 um3 7.4-10.4 Gran % 57.6 % 38-83 Lymph % 28.1 % 20-45 Mononuclear % 9.9 % High 1-9 Eosinophil % 3.1 % 0-6 Basophil % 1.3 % 0-2 Abs Lymphs 1.9 1.0-4.8 Abs Mononuclear 0.7 0-0.8 Absolute Neutrophil Count 3.9 1.5-7.7 Abs Eosinophils 0.2 0-0.6 Abs Basophils 0.1 0-0.2 Comp Metabolic Panel 04/10/2012 Sodium 140 mmol/L 135-145 Potassium 4.9 mmol/L 3.5-5.0 Chloride 106 mmol/L 101-111 Co2 (Carbon Dioxide) 30.0 mmol/L 22-32 Anion Gap 4.0 mmol/L 2-11 66 Glucose 95 mg/dL 70-100 BUN 9 mg/dL 6-24 Creatinine 1.2 mg/dL 0.50-1.40 One Over Creatinine 0.83 BUN/Creatinine Ratio 7.5 Low 8-20 Calcium 9.2 mg/dL 8.1-9.9 Total Protein 6.4 GM/DL 6.2-8.1 Albumin 4.3 GM/DL 3.2-5.2 Globulin 2.1 GM/DL 2-4 Albumin/Globulin Ratio 2.0 1-3 Bilirubin Total 1.8 mg/dL High 0.4-1.5 67 Alkaline Phosphatase 50 U/L 39-117 Alt (SGPT) 18 U/L 17-63 Ast (Sgot) 24 U/L 12-42 eGFR Non- 60.6 > 60 eGFR 77.9 > 60 68 Laboratory test finding 04/10/2012 Magnesium 2.2 mg/dL 1.7-2.6 TSH 1.36 MIU/ML 0.34-5.60 Vitamin B12 364 pg/mL 180-914 Urine DIP 04/10/2012 Leukocytes NEG Neg Urine Nitrites NEG Neg Urine pH 5 5-6 Total Protein, Urine NEG Neg Urine Glucose NORM Norm Urine Ketones NEG Neg Urobilinogen NORM Norm Urine Bilirubin NEG Neg Urine Blood NEG Neg Specific [place] N/A Low 1.01-1.02 Laboratory test finding 11/28/2011 PSA,Diagnostic 6.83 NG/ML High 0-4 69 Surgical Pathology 01/17/2011 Surgical Pathology 70 <SEE NOTE> Laboratory test finding 12/29/2010 PSA,Diagnostic 6.31 NG/ML High 0-4 71 Laboratory test finding 11/15/2009 PSA,Diagnostic 5.55 NG/ML High 0-4 72 Laboratory test finding 08/16/2009 PSA,Diagnostic 5.19 NG/ML High 0-4 73 Urine DIP 03/08/2009 Leukocytes NEG Neg Urine Nitrites NEG Neg Urine pH 5 5-6 Total Protein, Urine NEG Neg Urine Glucose NORM Norm Urine Ketones NEG Neg Urobilinogen NORM Norm Urine Bilirubin NEG Neg Urine Blood NEG Neg Specific [place] N/A Low 1.01-1.02 Vitamin D.25 Hydroxy 09/30/2008 25-Hydroxy Vitamin D2 31 ng/mL () 25-Hydroxy Vitamin D3 18 ng/mL () 25-Hydroxy Vitamin D Total 49 ng/mL () 74 Laboratory test finding 09/24/2008 PSA,Diagnostic 3.93 NG/ML 0-4 75 Urinalysis W/Microscopic 09/21/2008 Ua Color YELLOW Appearance-Urine CLEAR Specific Molena-Ur 1.017 1.010-1.030 Esterase-Urine NEGATIVE Negative Nitrite NEGATIVE Negative [id number] NEGATIVE Negative Protein-Urine NEGATIVE Negative PH-Urine 7.0 5-9 Blood-Urine 1+ Negative Ketones-Urine TRACE Negative Bilirubin-Ur NEGATIVE Negative Glucose-Urine NEGATIVE Negative WBC-Urine RARE 0-5 RBC-Urine 10-12 0-2 Epith Cells-Ur FEW CMP Stat 09/21/2008 Sodium 140 mmol/L 135-145 Potassium 3.6 mmol/L 3.5-5.0 Chloride 108 mmol/L 101-111 Co2 (Carbon Dioxide) 25.0 mmol/L 22-32 Anion Gap 7.0 mmol/L 2-11 76 Glucose 118 mg/dL High 70-100 77 BUN 18 mg/dL 6-24 Creatinine 1.50 mg/dL High 0.50-1.40 One Over Creatinine 0.60 BUN/Creatinine Ratio 12.0 8-20 Calcium 9.0 mg/dL 8.1-9.9 78 Total Protein 6.6 GM/DL 6.2-8.1 Albumin 3.8 GM/DL 3.2-5.2 Globulin 2.8 GM/DL 2-4 Albumin/Globulin Ratio 1.4 1-3 Bilirubin Total 1.5 mg/dL 0.4-1.5 Alkaline Phosphatase 41 U/L 39-117 Alt (SGPT) 25 U/L 17-63 Ast (Sgot) 26 U/L 12-42 CBC With Electronic Diff Stat 09/21/2008 White Blood Count 6.9 CUMM 4.8- 10.8 Red Cell Count 4.65 CUMM 4.6-6.2 Hemoglobin 14.7 g/dL 14.0-18.0 Hematocrit 43 % 42-52 Mean Corpuscular Volume 91 um3 80-94 Mean Corpuscular Hemoglob 32 pg High 27-31 Mean Corpuscular HGB Cone 35 g/dL 32-36 Redcell Distribution WDTH 13 % 10.5-15 Platelet Count 235 CUMM 150-450 Mean Platelet Volume 7.6 um3 7.4-10.4 Gran % 52.8 % 38-83 Lymph % 34.0 % 25-47 Mononuclear % 9.6 % High 1-9 Eosinophil % 3.3 % 0-6 Basophil % 0.3 % 0-2 Abs Lymphs 2.3 1.0-4.8 Abs Mononuclear 0.7 0-0.8 Absolute Neutrophil Count 3.6 1.5-7.7 Abs Eosinophils 0.2 0-0.6 Abs Basophils 0 0-0.2 Laboratory test finding 07/21/2008 Lyme Disease,Igg/Igm 0.58 INDEX Negative 79 Comprehensive Metabolic 07/21/2008 Glucose 94 mg/dL 70-100 BUN 26 mg/dL High 5-21 Creatinine, Serum 1.2 mg/dL 0.6-1.5 Sodium 143 mmol/L 136-146 Potassium 4.3 mmol/L 3.5-5.3 Chloride 107 mmol/L 98-110 Carbon Dioxide 25 mmol/L 20-32 Albumin 4.3 g/dL 3.5-4.7 Protein, Total 6.6 g/dL 6.4-8.3 Calcium 8.5 mg/dL 8.4-10.4 Alkaline Phosphatase 51 U/L 10-118 Sgot (Ast) 20 U/L 3-40 SGPT (Alt) 14 U/L 7-50 Bilirubin, Total 1.30 mg/dL High 0.30-1.20 Laboratory test finding 07/21/2008 PSA 4.2 ng/ml High 0.0-4.0 80 CBC 07/21/2008 WBC 7.1 x103 4.3-10.9 RBC 4.49 x106 Low 4.70-6.20 Hemoglobin 13.7 g/dL 13.0-17.0 Hematocrit 41.3 % 39.0-50.0 MCV 92.0 fl 82.0-98.0 MCH 30.5 pg 27.5-33.5 MCHC 33.2 g/dL 32.0-36.0 RDW 12.3 % 11.5-14.5 Platelet Count 225 x103 130-400 MPV 10.4 fl 6.5-10.5 Segmented Neutrophils 61.8 % 44.0-74.0 Lymphocytes 22.6 % 15.0-45.0 Monocytes 11.4 % 2.0-13.0 Eosinophils 3.9 % 0.0-6.0 Basophils 0.3 % 0.0-2.0 Neutrophil Absolute 4.4 x103 1.4-7.0 Lymphocytes Absolute 1.6 x103 1.0-3.4 Monocyte Absolute 0.8 x103 0.2-1.0 Eosinophil Absolute 0.3 x103 0.0-0.5 Basophil Absolute 0.0 x103 0.0-0.2 Laboratory test finding 07/21/2008 Rheumatoid Factor (RF) SEE BELOW 81 Sedimentation Rate 2 MM/HR 0-15 Antinuclear AB (Page) NEGATIVE Negative 82 CCP Igg Antibodies 1 U/mL 0-5 83 Vitamin D, 25 Oh 29.9 ng/mL Low 32.0-100.0 84 GFR (Calculated) 07/21/2008 GFR (Calculated) >60 85 Laboratory test finding 09/05/2007 PSA Screening 4.16 NG/ML High 0-4 86 Surgical Pathology 03/14/2007 Surgical Pathology 87 <SEE NOTE> Urine DIP 01/21/2007 Leukocytes neg Neg Urine Nitrites neg Neg Urine pH 5 5-6 Total Protein, Urine neg Neg Urine Glucose norm Norm Urine Ketones neg Neg Urobilinogen norm Norm Urine Bilirubin neg Neg Urine Blood neg Neg Specific [place] n/a Low 1.01-1.02 Laboratory test finding 01/21/2007 PSA Screening 4.79 NG/ML High 0.01-4.0 88 Hemoglobin A1c 5.7 % <6.0 89 TSH 1.22 MIU/ML 0.34-5.60 Comp Metabolic Panel 01/21/2007 One Over Creatinine 0.83 Anion Gap 8.0 mmol/L 2-11 90 Albumin/Globulin Ratio 1.8 1-3 Albumin 4.4 GM/DL 3.2-5.2 Alkaline Phosphatase 40 U/L 39-117 Alt (SGPT) 12 U/L Low 17-63 Ast (Sgot) 20 U/L 12-42 BUN 15 mg/dL 6-24 Calcium 8.8 mg/dL 8.7-10.2 Chloride 100 mmol/L Low 101-111 Co2 (Carbon Dioxide) 28.0 mmol/L 22-32 Globulin 2.4 GM/DL 2-4 Glucose 86 mg/dL 70-105 Potassium 4.1 mmol/L 3.5-5.0 Sodium 136 mmol/L 135-145 Bilirubin Total 1.6 mg/dL High 0.4-1.5 Total Protein 6.8 GM/DL 6.2-8.1 BUN/Creatinine Ratio 12.5 8-20 Creatinine 1.2 mg/dL 0.5-1.4 CBC With Electronic Diff 01/21/2007 White Blood Count 6.1 CUMM 4.8-10.8 Abs Basophils 0 0-0.2 Abs Eosinophils 0.2 0-0.6 Absolute Neutrophil Count 3.2 1.5-7.7 Abs Lymphs 2.0 1.0-4.8 Abs Mononuclear 0.6 0-0.8 Basophil % 0.4 % 0-2 Hematocrit 45 % 42-52 Hemoglobin 15.1 g/dL 14.0-18.0 Eosinophil % 4.1 % 0-6 Gran % 52.7 % 38-83 Lymph % 33.3 % 20-45 Mean Corpuscular HGB Cone 34 g/dL 32-36 Mean Corpuscular Hemoglob 32 pg High 27-31 Mean Corpuscular Volume 94 um3 80-94 Mean Platelet Volume 9.0 um3 7.4-10.4 Mononuclear % 9.5 % High 1-9 Platelet Count 224 CUMM 150-450 Red Cell Count 4.79 CUMM 4.6-6.2 Redcell Distribution WDTH 13 % 10.5-15 CBC With Electronic Diff 09/07/2005 White Blood Count 4.3 CUMM Low 4.8- 10.8 Hematocrit 46 % 42-52 Hemoglobin 15.8 g/dL 14.0-18.0 Mean Corpuscular HGB Cone 34 g/dL 32-36 Mean Corpuscular Hemoglob 32 pg High 27-31 Mean Corpuscular Volume 93 um3 80-94 Mean Platelet Volume 9.1 um3 7.4-10.4 Platelet Count 189 CUMM 150-450 Red Cell Count 4.99 CUMM 4.6-6.2 Redcell Distribution WDTH 13 % 10.5-15 Laboratory test finding 09/07/2005 Erythrocyte Sed Rate 10 MM/HR 0-20 CBC With Manual Diff 09/07/2005 RBC Morphology NORMAL White Blood Count 4.3 CUMM Low 4.8-10.8 Absolute Neutrophil Count 2.1 Hematocrit 46 % 42-52 Hemoglobin 15.8 g/dL 14.0-18.0 Eosenophil 3 % 0-6 Lymphocyte 31 % 5-47 Mean Corpuscular HGB Cone 34 g/dL 32-36 Mean Corpuscular Hemoglob 32 pg High 27-31 Mean Corpuscular Volume 93 um3 80-94 Monocyte 15 % High 0-13 Mean Platelet Volume 9.1 um3 7.4-10.4 Platelet Count 189 CUMM 150-450 Polysegmented Neutrophil 51 % 38-83 Red Cell Count 4.99 CUMM 4.6-6.2 Redcell Distribution WDTH 13 % 10.5-15 Laboratory test finding 03/02/2004 TSH 1.24 MIU/ML 0.34-5.60 PSA Screening 6.7 NG/ML High 0-4 91 Comp Metabolic Panel 03/02/2004 Anion Gap 5.0 mmol/L 2-11 92 Albumin/Globulin Ratio 1.9 1-3 Albumin 4.4 GM/DL 3.6-5.4 Alkaline Phosphatase 47 U/L 39-117 Alt (SGPT) 13 U/L Low 17-63 Ast (Sgot) 19 U/L 12-42 BUN 16 mg/dL 6-24 Calcium 9.6 mg/dL 8.7-10.2 Chloride 105 mmol/L 101-111 Co2 (Carbon Dioxide) 29.0 mmol/L 22-32 Creatinine 1.2 mg/dL 0.5-1.4 Globulin 2.3 GM/DL 2-4 Glucose 90 mg/dL 70-105 Potassium 4.9 mmol/L 3.5-5.0 Sodium 139 mmol/L 135-145 Bilirubin Total 1.9 mg/dL High 0.4-1.5 Total Protein 6.7 GM/DL 6.2-8.1 BUN/Creatinine Ratio 13.3 8-20 Lipid Profile (Trig/Chol/HDL) 03/02/2004 Cholesterol 186 mg/dL Less Than 200 93 Triglyceride 59 mg/dL 40-200 High Density Lipoprotein 53 mg/dL 40-60 Low Density Lipoprotein 121 mg/dL High Less Than 100 94 Cholesterol/HDL Ratio 3.51 AVERAGE 1-4.97 Laboratory test finding 03/02/2004 Hemoglobin A1c 5.4 % <6.0 95 CBC With Electronic Diff 03/02/2004 White Blood Count 6.4 CUMM 4.8-10.8 Abs Basophils 0 0-0.2 Abs Eosinophils 0.2 0-0.6 Abs Grans 3.7 1.5-7.7 Abs Lymphs 2.0 1.0-4.8 Abs Mononuclear 0.5 0-0.8 Basophil % 0.2 % 0-2 Hematocrit 45 % 42-52 Hemoglobin 15.3 g/dL 14.0-18.0 Eosinophil % 3.9 % 0-6 Gran % 57.0 % 38-83 Lymph % 31.1 % 20-45 Mean Corpuscular HGB Cone 34 g/dL 32-36 Mean Corpuscular Hemoglob 32 pg High 27-31 Mean Corpuscular Volume 94 um3 80-94 Mean Platelet Volume 8.7 um3 7.4-10.4 Mononuclear % 7.8 % 1-9 Platelet Count 234 CUMM 150-450 Red Cell Count 4.82 CUMM 4.6-6.2 Redcell Distribution WDTH 13 % 10.5-15 Urine Culture And 03/02/2004 Urine Culture FINAL: NO GROWTH 96 Sensitivites Sensitivi <SEE NOTE> Urine DIP 03/02/2004 Leukocytes NEG Neg Urine Nitrites NEG Neg Urine pH 5 5-6 Total Protein, Urine NEG Neg Urine Glucose NORM Norm Urine Ketones NEG Neg Urobolinogen NORM Norm Urine Bilirubin NEG Neg Urine Blood 100 High Neg Specific Molena NA Low 1.01-1.02 Urine DIP 06/18/2002 Leukocytes NEG Neg Urine Nitrites NEG Neg Urine pH 5 5-6 Total Protein, Urine NEG Neg Urine Glucose NORM Norm Urine Ketones NEG Neg Urobolinogen NORM Norm Urine Bilirubin NEG Neg Urine Blood NEG Neg CBC With Electronic Diff 05/13/2002 Platelet Count 222 CUMM 150-450 White Blood Count 5.2 CUMM 4.8-10.8 Abs Basophils 0 0-0.2 Abs Eosinophils 0.2 0-0.6 Abs Grans 2.8 1.5-7.7 Abs Lymphs 1.7 1.0-4.8 Abs Mononuclear 0.5 0-0.8 Basophil % 0.6 % 0-2 Hematocrit 43 % 42-52 Hemoglobin 14.4 g/dL 14.0-18.0 Eosinophil % 3.7 % 0-6 Gran % 52.7 % 38-83 Lymph % 33.4 % 20-45 Mean Corpuscular HGB Cone 34 g/dL 32-36 Mean Corpuscular Hemoglob 31 pg 27-31 Mean Corpuscular Volume 92 um3 80-94 Mean Platelet Volume 8.8 um3 7.4-10.4 Mononuclear % 9.6 % High 1-9 Red Cell Count 4.66 CUMM 4.6-6.2 Redcell Distribution WDTH 12 % 10.5-15 Laboratory test finding 05/13/2002 Cortisol 12.1 g/dL 97 PSA Screening 3.5 NG/ML 0-4 98 Laboratory test finding 04/16/2002 TSH 1.08 MIU/ML 0.34-5.60 99 Free Thyroxine 0.91 ng/dL 0.58-1.64 100 Urine DIP 04/15/2002 Leukocytes NEG Neg Urine Nitrites NEG Neg Urine pH 5 5-6 Total Protein, Urine NEG Neg Urine Glucose NORM Norm Urine Ketones 1+ High Neg Urobolinogen NORM Norm Urine Bilirubin NEG Neg Urine Blood NEG Neg Laboratory test finding 04/15/2002 Glucose By Moniter 75 Low 78-110 1 Consistent with early infection with Borrelia burgdorferi. A new serum specimen should be submitted in 14-21 days to demonstrate seroconversion of IgG. IgM blot criteria is of diagnostic utility only during the first 4 weeks of early Lyme disease. ADDITIONAL INFORMATION Per CDC criteria, the Lyme IgG Immunoblot is interpreted as positive if IgG-class antibodies are detected to >=5 B. burgdorferi proteins, and the Lyme IgM Immunoblot is interpreted as positive if IgM-class antibodies are detected to >=2 B. burgdorferi proteins. Immunoblot patterns not meeting these criteria should not be interpreted as positive. Epitopes from certain B. burgdorferi proteins (e.g., p41) are conserved across other bacteria, which may lead to the detection of IgM- and/or IgG-class antibodies on the Lyme disease immunoblots in patients without Lyme disease. Immunoblot should only be ordered on specimens that are positive or equivocal by a FDA-licensed Lyme disease antibody screening test (e.g., EIA). Results of the Lyme IgM immunoblot should not be considered in patients with >=30 days of symptoms. Test Performed by: [facility] [address] [place] [address] 2 Because ethnic data is not always readily available, this report includes an eGFR for both -Americans and non- Americans. The National Kidney Disease Education Program (NKDEP) does not endorse the use of the MDRD equation for patients that are not between the ages of 18 and 70, are , have extremes of body size, muscle mass, or nutritional status, or are non- or non-. According to the National Kidney Foundation, irrespective of diagnosis, the stage of the disease is based on the level of kidney function: Stage Description GFR(mL/min/1.73 m(2)) 1 Kidney damage with normal or decreased GFR 90 2 Kidney damage with mild decrease in GFR 60-89 3 Moderate decrease in GFR 30-59 4 Severe decrease in GFR 15-29 5 Kidney failure <15 (or dialysis) 3 [id number] 5 Serum levels of PSA measured using the [employer] DXI Hybritech immunoassay should not be interpreted as absolute evidence of the presence or absence of disease. The PSA value should be used in conjunction with other pertinent clinical diagnostic procedures. The values obtained with different assay methods or kits cannot be used interchangeably. 6 Because ethnic data is not always readily available, this report includes an eGFR for both -Americans and non- Americans. The National Kidney Disease Education Program (NKDEP) does not endorse the use of the MDRD equation for patients that are not between the ages of 18 and 70, are , have extremes of body size, muscle mass, or nutritional status, or are non- or non-. According to the National Kidney Foundation, irrespective of diagnosis, the stage of the disease is based on the level of kidney function: Stage Description GFR(mL/min/1.73 m(2)) 1 Kidney damage with normal or decreased GFR 90 2 Kidney damage with mild decrease in GFR 60-89 3 Moderate decrease in GFR 30-59 4 Severe decrease in GFR 15-29 5 Kidney failure <15 (or dialysis) 7 Specimen Hemolyzed. Result may not be valid. Unable to report test result due to hemolysis. 8 Serum levels of PSA measured using the [employer] DXI [employer] immunoassay should not be interpreted as absolute evidence of the presence or absence of disease. The PSA value should be used in conjunction with other pertinent clinical diagnostic procedures. The values obtained with different assay methods or kits cannot be used interchangeably. 9 Please note: The following may produce a false positive D Dimer test: - Rheumatoid factor greater than 60 IU/ml - Plasma hemoglobin greater than 0.05 gm/dl - Bilirubin greater than 50 mg/dl - Lipids greater than 1000 mg/dl - FDP greater than 20 ug/ml 10 Serum levels of PSA measured using the [employer] DXI [employer]brite[employer] immunoassay should not be interpreted as absolute evidence of the presence or absence of disease. The PSA value should be used in conjunction with other pertinent clinical diagnostic procedures. The values obtained with different assay methods or kits cannot be used interchangeably. 11 ADDITIONAL INFORMATION This test was developed and its performance characteristics determined by [facility] in a manner consistent with CLIA requirements. This test has not been cleared or approved by the [place]. Food and Drug Administration. 12 ADDITIONAL INFORMATION This test was developed and its performance characteristics determined by [facility] in a manner consistent with CLIA requirements. This test has not been cleared or approved by the U[place]. Food and Drug Administration. 13 ADDITIONAL INFORMATION This test was developed and its performance characteristics determined by [facility] [facility] in a manner consistent with CLIA requirements. This test has not been cleared or approved by the U.S. Food and Drug Administration. Test Performed by: [address] [address] 14 SEE RESULT BELOW Name: GIULIA LORA : [address]: Venita Matos MD Acct: [id number] Unit: [id number] AGE: 71 Location: [facility] Re12/23/16 SEX: M Status: REG REF SPEC: [id number] MARITO: 12/23/16-1041 [facility] DR: Venita Matos MD REQ: [id number] RECD: 12/23/16 STATUS: COMP _ SOURCE: URINE SPDESC: ORDERED: Urine Culture Procedure Result Reported Site Urine Culture Final 12/25/16- 0850 ML No Growth (<1,000 CFU/mL) * ML - MAIN LAB ([facility]) . END OF REPORT * ML=Testing performed at Main Lab DEPARTMENT OF PATHOLOGY, [address] [place] [address] Keven Quijano M.D. Director [facility] # [id number] 15 Consistent with early infection with Borrelia burgdorferi. A new serum specimen should be submitted in 14-21 days to demonstrate seroconversion of IgG. IgM blot criteria is of diagnostic utility only during the first 4 weeks of early Lyme disease. ADDITIONAL INFORMATION CDC criteria require >=5 bands for IgG or >=2 bands for IgM for the Immunoblot to be considered positive. Bands (e.g.,p41) may be detected in patients without Lyme disease, and patterns not meeting the CDC criteria should be interpreted with caution. Immunoblot should be ordered only on specimens that are positive or equivocal by a FDA-licensed Lyme disease antibody screening test (e.g., EIA). Test Performed by: [address] [address] 16 Because ethnic data is not always readily available, this report includes an eGFR for both -Americans and non- Americans. The National Kidney Disease Education Program (NKDEP) does not endorse the use of the MDRD equation for patients that are not between the ages of 18 and 70, are , have extremes of body size, muscle mass, or nutritional status, or are non- or non-. According to the National Kidney Foundation, irrespective of diagnosis, the stage of the disease is based on the level of kidney function: Stage Description GFR(mL/min/1.73 m(2)) 1 Kidney damage with normal or decreased GFR 90 2 Kidney damage with mild decrease in GFR 60-89 3 Moderate decrease in GFR 30-59 4 Severe decrease in GFR 15-29 5 Kidney failure <15 (or dialysis) 17 Serum levels of PSA measured using the Joaquín [employer] DXI Hybritech immunoassay should not be interpreted as absolute evidence of the presence or absence of disease. The PSA value should be used in conjunction with other pertinent clinical diagnostic procedures. The values obtained with different assay methods or kits cannot be used interchangeably. 18 Please note: The following may produce a false positive D Dimer test: - Rheumatoid factor greater than 60 IU/ml - Plasma hemoglobin greater than 0.05 gm/dl - Bilirubin greater than 50 mg/dl - Lipids greater than 1000 mg/dl - FDP greater than 20 ug/ml 19 Serum levels of PSA measured using the Joaquín Sasha DXI Hybritech immunoassay should not be interpreted as absolute evidence of the presence or absence of disease. The PSA value should be used in conjunction with other pertinent clinical diagnostic procedures. The values obtained with different assay methods or kits cannot be used interchangeably. 20 [id number] 21 Because ethnic data is not always readily available, this report includes an eGFR for both -Americans and non- Americans. The National Kidney Disease Education Program (NKDEP) does not endorse the use of the MDRD equation for patients that are not between the ages of 18 and 70, are , have extremes of body size, muscle mass, or nutritional status, or are non- or non-. According to the National Kidney Foundation, irrespective of diagnosis, the stage of the disease is based on the level of kidney function: Stage Description GFR(mL/min/1.73 m(2)) 1 Kidney damage with normal or decreased GFR 90 2 Kidney damage with mild decrease in GFR 60-89 3 Moderate decrease in GFR 30-59 4 Severe decrease in GFR 15-29 5 Kidney failure <15 (or dialysis) 22 [id number] 23 SEE RESULT BELOW Name: YONATHANFERDINANDGIULIA : [address]: Anil Magallanes MD Acct: [id number] Unit: [id number] AGE: 70 Location: [facility] Re11/02/15 SEX: M Status: REG REF SPEC: [id number] MARITO: 11/02/15- SUBM DR: Anil Magallanes MD REQ: [id number] RECD: 11/02/15-1404 STATUS: GRIS REYNAGA DR: Venita Matos MD _ ORDERED: LEVEL IV/4 FINAL DIAGNOSIS 1. Prostate, left apex, biopsy: -- Benign prostatic tissue. 2. Prostate, left base, biopsy: -- Benign prostatic tissue. 3. Prostate, right apex, biopsy: -- Benign prostatic tissue. 4. Prostate, right base, biopsy: -- Benign prostatic tissue. 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 The specimen is received in formalin labeled, Left Prostate Lobe [place], and consists of three fragmented barber soft tissue cores ranging from 0.2 x 0.1 cm to 1.4 x 0.1 cm, which are submitted entirely in one cassette. 2. The specimen is received in formalin labeled, Left Prostate Lobe Base, and consists of three barber soft tissue cores averaging 1.4 x 0.1 cm, which are submitted entirely in one cassette. CONTINUED ON NEXT PAGE * ML=Testing performed at Main Lab DEPARTMENT OF PATHOLOGY, [address] [place] [address] Keven Quijano M.D. Director [facility] # [id number] RUN DATE: 11/03/15 [facility] LAB LIVE PAGE 2 Patient: GIULIA LORA [id number] (Continued) GROSS DESCRIPTION (Continued) GROSS DESCRIPTION (Continued) 3. The specimen is received in formalin labeled, Right Prostate Lobe [place], and consists of three barber soft tissue cores ranging from 1.0 x 0.1 cm to 1.4 x 0.1 cm, which are submitted entirely in one cassette. 4. The specimen is received in formalin labeled, Right Prostate Lobe Base, and consists of three fragmented barber soft tissue cores ranging from 0.2 x 0.1 cm to 1.2 x 0.1 cm, which are submitted entirely in one cassette. Signed (signature on file) Amirah Wick MD 1000 END OF REPORT * ML=Testing performed at [facility] Lab DEPARTMENT OF PATHOLOGY, [address] [place] [address] Keven Quijano M.D. Director [facility] # [id number] 24 Serum levels of PSA measured using the Joaquín [employer] DXI Hybritech immunoassay should not be interpreted as absolute evidence of the presence or absence of disease. The PSA value should be used in conjunction with other pertinent clinical diagnostic procedures. The values obtained with different assay methods or kits cannot be used interchangeably. 25 Please note: The following may produce a false positive D Dimer test: - Rheumatoid factor greater than 60 IU/ml - Plasma hemoglobin greater than 0.05 gm/dl - Bilirubin greater than 50 mg/dl - Lipids greater than 1000 mg/dl - FDP greater than 20 ug/ml 26 Please note: The following may produce a false positive D Dimer test: - Rheumatoid factor greater than 60 IU/ml - Plasma hemoglobin greater than 0.05 gm/dl - Bilirubin greater than 50 mg/dl - Lipids greater than 1000 mg/dl - FDP greater than 20 ug/ml 27 This individual DOES NOT have the Prothrombin [id number] mutation. Although the Prothrombin [id number] mutation is absent, the individual may have other genetic and environmental risk factors for thrombosis. If clinically indicated, suggest Coagulation Consultation 74503 (Thrombophilia Profile) to complete the evaluation for an inherited or acquired thrombosing disorder (i.e., thrombophilia). Consider genetic consultation and counseling of potentially affected family members regarding laboratory testing. ADDITIONAL INFORMATION This test is a direct mutation analysis using PCR amplification, signal generation and release by cleavage of sequence specific alleles ([employer], [employer], [place], [place]). 28 Test Performed by: [place] [address] V Belt Builder: Roldan Huitron II, M.D., Ph.D. 29 REFERENCE VALUE <10.0 (Negative) Test Performed by: [facility] [place] [address] V Belt Builder: Roldan Huitron II, M.D., Ph.D. 30 REFERENCE VALUE <10.0 (Negative) 31 REFERENCE VALUE <10.0 (Negative) Test Performed by: [place] [address] V Belt Builder: Roldan Huitron II, M.D., Ph.D. 32 This individual DOES have the factor V Leiden (R506Q) mutation on ONE allele, (heterozygous carrier). The factor V Leiden (R506Q) mutation is a risk factor for venous thromboembolism and recurrent miscarriage, and possibly a risk factor for complications of and for arterial thrombosis. If clinically indicated, suggest Coagulation Consultation 98656 (Thrombophilia Profile) to complete the evaluation for an inherited or acquired thrombosing disorder (i.e., thrombophilia). Consider genetic consultation and counseling of potentially affected family members regarding laboratory testing. ADDITIONAL INFORMATION This test is a direct mutation analysis using PCR amplification, signal generation and release by cleavage of sequence specific alleles ([employer], [employer], [place], [place]). 33 Jona Delgado M.D. Test Performed by: [place] [address] V Belt Builder: Roldan Huitron II, M.D., Ph.D. 34 REFERENCE VALUE <=13 (Fasting) Test Performed by: [place] [address] V Belt Builder: Roldan Huitron II, M.D., Ph.D. 35 REFERENCE VALUE 10.3 - 12.8 36 No evidence of a lupus-like anticoagulant based on results of Prothrombin Time (PT), Activated Partial Thromboplastin Time (APTT), and Dilute Russells Viper Venom Time (DRVVT). Interpretation not reviewed by physician. Test Performed by: [place] [address] V Belt Builder: Roldan Huitron II, M.D., Ph.D. 37 Test Performed by: [place] [address] V Belt Builder: Roldan Huitron II, M.D., Ph.D. 38 Heparin levels greater than 1 U/ml, inhibitors of the APTT test system (especially lupus anticoagulant), or inhibitors of bovine factor V (such antibodies that may arise in patients treated with certain bovine topical thrombin preparations) may produce a falsely normal Protein S Activity result. Suggest clinical correlation and if indicated consider repeat assay of Protein S Activity and Antigen in the absence of anticoagulation therapy. Test Performed by: [place] [address] V Belt Builder: Roldan Huitron II, M.D., Ph.D. 39 Test Performed by: [address] [address] V Belt Builder: Roldan Huitron II, M.D., Ph.D. 40 Verbal to ZHEN Meade by [id number] at 1542 on 10/22/14. Results read back accurately. 41 Because ethnic data is not always readily available, this report includes an eGFR for both -Americans and non- Americans. The National Kidney Disease Education Program (NKDEP) does not endorse the use of the MDRD equation for patients that are not between the ages of 18 and 70, are , have extremes of body size, muscle mass, or nutritional status, or are non- or non-. According to the National Kidney Foundation, irrespective of diagnosis, the stage of the disease is based on the level of kidney function: Stage Description GFR(mL/min/1.73 m(2)) 1 Kidney damage with normal or decreased GFR 90 2 Kidney damage with mild decrease in GFR 60-89 3 Moderate decrease in GFR 30-59 4 Severe decrease in GFR 15-29 5 Kidney failure <15 (or dialysis) 42 SPECIMEN HEMOLYZED 43 Because ethnic data is not always readily available, this report includes an eGFR for both -Americans and non- Americans. The National Kidney Disease Education Program (NKDEP) does not endorse the use of the MDRD equation for patients that are not between the ages of 18 and 70, are , have extremes of body size, muscle mass, or nutritional status, or are non- or non-. According to the National Kidney Foundation, irrespective of diagnosis, the stage of the disease is based on the level of kidney function: Stage Description GFR(mL/min/1.73 m(2)) 1 Kidney damage with normal or decreased GFR 90 2 Kidney damage with mild decrease in GFR 60-89 3 Moderate decrease in GFR 30-59 4 Severe decrease in GFR 15-29 5 Kidney failure <15 (or dialysis) 44 Please note: Effective August 12, 2014, the reference value for this test has changed due to the validation and activation of a new reagent lot number. 45 REFERENCE VALUE 25-HYDROXY D TOTAL (D2+D3) Optimum levels in the healthy population are 20-50, patients with bone disease may benefit from higher levels within this range. Test Performed by: [address] [address] V Belt Builder: Rashi Morales M.D. 46 Please note: Effective August 12, 2014, the reference value for this test has changed due to the validation and activation of a new reagent lot number. 47 Because ethnic data is not always readily available, this report includes an eGFR for both -Americans and non- Americans. The National Kidney Disease Education Program (NKDEP) does not endorse the use of the MDRD equation for patients that are not between the ages of 18 and 70, are , have extremes of body size, muscle mass, or nutritional status, or are non- or non-. According to the National Kidney Foundation, irrespective of diagnosis, the stage of the disease is based on the level of kidney function: Stage Description GFR(mL/min/1.73 m(2)) 1 Kidney damage with normal or decreased GFR 90 2 Kidney damage with mild decrease in GFR 60-89 3 Moderate decrease in GFR 30-59 4 Severe decrease in GFR 15-29 5 Kidney failure <15 (or dialysis) 48 RUN DATE: 06/14/14 [facility] LAB LIVE PAGE 1 RUN TIME: [address] [place] [address] Specimen Inquiry Name: GIULIA LORA : [address]: Jona Saez MD Acct: [id number] Unit: [id number] AGE: 69 Location: LAB Re06/12/14 SEX: M Status: REG REF SPEC: [id number] MARITO: 06/12/14 [facility] DR: Jona Saez MD REQ: [id number] RECD: 06/12/14 STATUS: YUSUF REYNAGA DR: Anum Dudley SENIOR MECHANICAL ENGINEER _ SOURCE: URINE SPDESC: ORDERED: Urine Culture QUERIES: Medent Number [id number] Procedure Result Verified Site Urine Culture Final 06/14/14- 0808 ML No Growth Day 2 (<1,000 CFU/mL) END OF REPORT * ML=Testing performed at Main Lab DEPARTMENT OF PATHOLOGY, [address] [place] [address] Keven Quijano M.D. Director [facility] # [id number] 49 Potassium reference range changed effective 05/17/14 50 Because ethnic data is not always readily available, this report includes an eGFR for both -Americans and non- Americans. The National Kidney Disease Education Program (NKDEP) does not endorse the use of the MDRD equation for patients that are not between the ages of 18 and 70, are , have extremes of body size, muscle mass, or nutritional status, or are non- or non-. According to the National Kidney Foundation, irrespective of diagnosis, the stage of the disease is based on the level of kidney function: Stage Description GFR(mL/min/1.73 m(2)) 1 Kidney damage with normal or decreased GFR 90 2 Kidney damage with mild decrease in GFR 60-89 3 Moderate decrease in GFR 30-59 4 Severe decrease in GFR 15-29 5 Kidney failure <15 (or dialysis) 51 Serum levels of PSA measured using the [employer] DXI Hybritech immunoassay should not be interpreted as absolute evidence of the presence or absence of disease. The PSA value should be used in conjunction with other pertinent clinical diagnostic procedures. The values obtained with different assay methods or kits cannot be used interchangeably. 52 Serum levels of PSA measured using the Joaquín Sasha DXI Hybritech immunoassay should not be interpreted as absolute evidence of the presence or absence of disease. The PSA value should be used in conjunction with other pertinent clinical diagnostic procedures. The values obtained with different assay methods or kits cannot be used interchangeably. 53 RUN DATE: 04/03/13 [facility] LAB LIVE PAGE 1 RUN TIME: [address] [place], [place] [address] Specimen Inquiry Name: GIULIA LORA : [address]: Venita Matos MD Acct: [id number] Unit: [id number] AGE: 68 Location: [facility] Re04/01/13 SEX: M Status: REG REF SPEC: [id number] MARITO: 04/01/13-[address]: Venita Matos MD REQ: [id number] RECD: 04/01/13 STATUS: COMP _ SOURCE: URINE SPDESC: ORDERED: Urine Culture QUERIES: Medent Number [id number] Procedure Result Verified Site Urine Culture Final 04/03/13- 1032 ML No Growth Day 2 (<1,000 CFU/mL) END OF REPORT * ML=Testing performed at Main Lab DEPARTMENT OF PATHOLOGY, [address] [place] [address] Keven Quijano M.D. Director [facility] Permit #[id number] 54 Specific serologic response to B. burgdorferi infection is not detected, but cannot rule out early infection during which low or undetectable antibody levels to B. burgdorferi may be present. If clinically indicated, a new serum specimen should be submitted in 7-14 days. CDC criteria require >=5 bands for IgG or >=2 bands for IgM for the Immunoblot to be considered positive. Bands (e.g.,p41) may be detected in patients without Lyme disease, and patterns not meeting the CDC criteria should be interpreted with caution. Immunoblot should be ordered only on specimens that are positive or equivocal by a FDA-licensed Lyme disease antibody screening test (e.g., EIA). Test Performed by: [place] [address] V Belt Builder: Anish Lazaro III, M.D. 55 -- REFERENCE VALUE -- 25-HYDROXY D TOTAL (D2+D3) Optimum levels in the healthy population are 20-50, patients with bone disease may benefit from higher levels within this range. Test Performed by: [place] [address] V Belt Builder: Anish Lazaro III, M.D. 56 Because ethnic data is not always readily available, this report includes an eGFR for both -Americans and non- Americans. The National Kidney Disease Education Program (NKDEP) does not endorse the use of the MDRD equation for patients that are not between the ages of 18 and 70, are , have extremes of body size, muscle mass, or nutritional status, or are non- or non-. According to the National Kidney Foundation, irrespective of diagnosis, the stage of the disease is based on the level of kidney function: Stage Description GFR(mL/min/1.73 m(2)) 1 Kidney damage with normal or decreased GFR 90 2 Kidney damage with mild decrease in GFR 60-89 3 Moderate decrease in GFR 30-59 4 Severe decrease in GFR 15-29 5 Kidney failure <15 (or dialysis) 57 Therapeutic target for the treatment of diabetes Mellitus patients is <7% HBA1C, and in selective patients <6.0%.Please refer to [place] [employer] Diabetic care guidelines for further information. 58 HDL Interpretation: Undesirable: High Risk: Less than 40 mg/dL Desirable: Low Risk: Greater than 60 mg/dL 59 LDL Interpretation: Low Risk Optimal Level: LDL Less than 100 mg/dL Near or Above Optimal: LDL 100-129 mg/dL Borderline High Risk: LDL 130-159 mg/dL High Risk: LDL 160-189 mg/dL Very High Risk: LDL Greater than 189 mg/dL 60 -- REFERENCE VALUE -- <4.0 (Negative) Test Performed by: [place] [address] V Belt Builder: Anish Lazaro III, M.D. 61 Negative serology. Celiac disease unlikely. However, approximately 10% of patients with celiac disease are seronegative. Also, patients who are already adhering to a gluten-free diet may be seronegative. If celiac disease is highly clinically suspected, consider HLA-DQ typing. Test Performed by: [place] [address] V Belt Builder: Anish Lazaro III, M.D. 62 Class 2 (Positive 0.70-3.49) Test Performed by: [place] [address] V Belt Builder: Anish Lazaro III, M.D. 63 Serum levels of PSA measured using the Joaquín [employer] DXI Hybritech immunoassay should not be interpreted as absolute evidence of the presence or absence of disease. The PSA value should be used in conjunction with other pertinent clinical diagnostic procedures. The values obtained with different assay methods or kits cannot be used interchangeably. 64 Serum levels of PSA measured using the Joaquín [employer] DXI Hybritech immunoassay should not be interpreted as absolute evidence of the presence or absence of disease. The PSA value should be used in conjunction with other pertinent clinical diagnostic procedures. The values obtained with different assay methods or kits cannot be used interchangeably. 65 -- REFERENCE VALUE -- 25-HYDROXY D TOTAL (D2+D3) Optimum levels in the normal population are 25-80 Test Performed by: [facility] [address] [address] V Belt Builder: Anish Lazaro III, M.D. 66 Anion gap measurement may be of limited value in the presence of any alkalosis, especially in a combined acid base disorder. . 67 A metabolite of Naproxen, O-desmethylnaproxen, has been shown to interfere with the Jendrassik-Ramya method for measuring total bilirubin. Samples from patients who have taken Naproxen have shown spurious elevation in total bilirubin levels. 68 Because ethnic data is not always readily available, this report includes an eGFR for both -Americans and non- Americans. The National Kidney Disease Education Program (NKDEP) does not endorse the use of the MDRD equation for patients that are not between the ages of 18 and 70, are , have extremes of body size, muscle mass, or nutritional status, or are non- or non-. According to the National Kidney Foundation, irrespective of diagnosis, the stage of the disease is based on the level of kidney function: Stage Description GFR(mL/min/1.73 m(2)) 1 Kidney damage with normal or decreased GFR 90 2 Kidney damage with mild decrease in GFR 60-89 3 Moderate decrease in GFR 30-59 4 Severe decrease in GFR 15-29 5 Kidney failure <15 (or dialysis) 69 * SERUM LEVELS OF PSA MEASURED USING THE JOAQUÍN [employer] ACCESS HYBRITECH IMMUNOASSAY SHOULD NOT BE INTERPRETED ABSOLUTE EVIDENCE OF THE PRESENCE OR ABSENCE OF DISEASE. THE PSA VALUE SHOULD BE USED IN CONJUNCTION WITH OTHER PERTINENT CLINICAL DIAGNOSTIC PROCEDURES. The values obtained with different assay methods or kits cannot be used interchangeably. 70 ---- RUN DATE: 01/19/11 [facility] NMI LIVE PAGE 1 RUN TIME: 1415 Specimen Inquiry RUN USER: INTERFACE -- Name: GIULIA LORA Status: REG REF Re01/17/11 Age/Sex: 65/M Unit#: [id number] Location: [facility] : [birth year] -- [id number] [facility] Spec Date: 01/17/[address] [facility] Dr: Anil Petty i, MD Spec Type: SURGICAL P Received: 01/18/11 Copies to: Venita ayala MD SPECIMEN 1) LEFT LOBE PROSTATE BIOPSY APEX (APEX 3) 2) LEFT LOBE PROSTATE BIOPSY BASE (BASE 3) 3) RIGHT LOBE PROSTATE BIOPSY APEX (APEX 3) 4) RIGHT LOBE PROSTATE BIOPSY BASE (BASE 3) HISTORY PRE-OP DIAGNOSIS: Persistent PSA elevation, PSA 6.31 CLINICAL INFORMATION: Biopsy 04/18 - prostatitis, benign prostatic hypert rophy. Biopsy 02/19 - left apex prostatic intraepithelial neoplasia GROSS DESCRIPTION 1) The specimen is received in formalin labelled Giulia Lora, Left Prostate Lobe [place], and consists of three cylindrical fragments of white tissue each measuring 1.7 cm. Submitted entirely, one cassette labelled 1. 2) The specimen is received in formalin labelled Giulia Moore, Left Prostate Lobe Base, and consists of three cylindrical fragments of white tissue each measuring 1.7 cm. Submitted entirely, one cassette labelled 2. 3) The specimen is received in formalin labelled Giulia Moore, Right Prostate Lobe [place], and consists of several cylindrical fragments of white tissue ranging in size from 0.2 cm. to 1.5 cm. Submitted entirely, one cassette labelled 3. 4) The specimen is received in formalin labelled Giulia Lora, Right Prostate Lobe Base, and consists of several cylindrical fragments of white tissue ranging in size from 0.4 cm. to 2.0 cm. Submitted entirely, one cassette labelled 4. -- DEPARTMENT OF PATHOLOGY, [address] [place] [address] [facility] Permit #[id number] Hanna Nicole M.D. Admitting Representative Dir elian -- -- RUN DATE: 01/19/11 [facility] NMI LIVE PAGE 2 RUN TIME: 1415 Specimen Inquiry RUN USER: INTERFACE -- Name: GIULIA LORA Status: REG REF Re01/17/11 Age/Sex: 65/M Unit#: [id number] Location: [facility]. 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 2) Prostate, left base, biopsies: Benign prostatic tissue. 3) Prostate, right apex, biopsies: Benign prostatic tissue. 4) Prostate, right base, biopsies: Benign prostatic tissue. Signed Electronically by: AALIYAH WEST 01/19/11 1415 -- -- DEPARTMENT OF PATHOLOGY, [address] [place] [address] [facility] Permit #[id number] Keven Quijano M.D. Director Aaliyah West M.D. Admitting Representative Dir elian -- 71 * SERUM LEVELS OF PSA MEASURED USING THE Breezy ACCESS HYBRITECH IMMUNOASSAY SHOULD NOT BE INTERPRETED ABSOLUTE EVIDENCE OF THE PRESENCE OR ABSENCE OF DISEASE. THE PSA VALUE SHOULD BE USED IN CONJUNCTION WITH OTHER PERTINENT CLINICAL DIAGNOSTIC PROCEDURES. 72 * SERUM LEVELS OF PSA MEASURED USING THE [employer] Gentlemen ACCESS HYBRITECH IMMUNOASSAY SHOULD NOT BE INTERPRETED ABSOLUTE EVIDENCE OF THE PRESENCE OR ABSENCE OF DISEASE. THE PSA VALUE SHOULD BE USED IN CONJUNCTION WITH OTHER PERTINENT CLINICAL DIAGNOSTIC PROCEDURES. 73 * SERUM LEVELS OF PSA MEASURED USING THE [employer] Combatant Gentlemen ACCESS HYBRITECH IMMUNOASSAY SHOULD NOT BE INTERPRETED ABSOLUTE EVIDENCE OF THE PRESENCE OR ABSENCE OF DISEASE. THE PSA VALUE SHOULD BE USED IN CONJUNCTION WITH OTHER PERTINENT CLINICAL DIAGNOSTIC PROCEDURES. 74 -- REFERENCE VALUE -- 25-HYDROXY D TOTAL (D2+D3) Optimum levels in the normal population are 25-80 Test Performed by: [facility] Dpt of Lab Med and Pathology [address] [place] [address] V Belt Builder: Anish Lazaro III, M.D. 75 * SERUM LEVELS OF PSA MEASURED USING THE JO[employer]QU[employer] Combat[employer] Gentlemen ACCESS HYBRITECH IMMUNOASSAY SHOULD NOT BE INTERPRETED ABSOLUTE EVIDENCE OF THE PRESENCE OR ABSENCE OF DISEASE. THE PSA VALUE SHOULD BE USED IN CONJUNCTION WITH OTHER PERTINENT CLINICAL DIAGNOSTIC PROCEDURES. 76 Anion gap measurement may be of limited value in the presence of any alkalosis, especially in a combined acid base disorder. . 77 Note change in reference range as of 03/05/08. The change was based on recommendations from the [place] [employer]. 78 Please note change in reference range effective 07 . 79 < or=0.80 Negative 0.81 - 1.20 Equivocal >1.20 Positive 80 . Serum PSA results should be used only in conjunction with information available from the clinical evaluation of the patient and other diagnostic procedures. Values obtained with different assay methods or kits cannot be used interchangeably. Results obtained using RelinkL[employer]aur ICMA methodology. 81 RA Latex Turbid. 2.4 0.0-13.9 IU/mL RN RN-[facility] [place] [address] [facility] [phone] 82 (Performed by Enzyme Immunoassay, EIA) 83 Negative: 0 - 5 Positive: >5 84 Recent studies consider the lower limit of 32.0 ng/mL to be a threshold for optimal health. Jerardo MURO. J Nutr. 2004;135(2):317-22. 85 mL/min/1.73m2 . Normal Function or Mild Renal Disease, if clinically at risk: >or=60 Moderately decreased: 30 - 59 Severely decreased: 15 - 29 Renal Failure: <15 . Please note that the MDRD equation requires an additional adjustment for -Americans (multiply the GFR result by 1.210). . Glomerular Filtration Rate (GFR) is estimated based on the MDRD equation, which assumes a steady state for creatinine (Ivet Int Med 139/2 137-149, 2002), as recommended by the National Kidney Disease Education Program in conjunction with the National Institutes of Health and the National Kidney Foundation. . Clinical conditions in which it may be necessary to measure GFR by using clearance methods include extremes of age and body size, severe malnutrition or obesity, diseases of skeletal muscle, paraplegia or quadriplegia, vegetarian diet, rapidly changing kidney function, and calculation of the dose of potentially toxic drugs that are excreted by the kidneys. 86 * SERUM LEVELS OF PSA MEASURED USING THE JOAQUÍN SASHA ACCESS HYBRITECH IMMUNOASSAY SHOULD NOT BE INTERPRETED ABSOLUTE EVIDENCE OF THE PRESENCE OR ABSENCE OF DISEASE. THE PSA VALUE SHOULD BE USED IN CONJUNCTION WITH OTHER PERTINENT CLINICAL DIAGNOSTIC PROCEDURES. 87 ---- RUN DATE: 03/20/07 [facility] NMI LIVE PAGE 1 RUN TIME: 1514 Specimen Inquiry RUN USER: INTERFACE [id number] GIULIA LORA <REG REF 03/14> ([id number]) [facility] Elpidio RICHARDSON, Anil -- Specimen: [id number] SOUT Spec Date: 03/14/[address] [facility] Dr: Anil Petty i, MD Spec Type: SURGICAL P Received: 03/15/07-1740 Copies to: Venita ayala MD SPECIMEN 1) LEFT LOBE PROSTATE BIOPSY APEX (APEX 3) 2) LEFT LOBE PROSTATE BIOPSY BASE (BASE 3) 3) RIGHT LOBE PROSTATE BIOPSY APEX (APEX 3) 4) RIGHT LOBE PROSTATE BIOPSY BASE (BASE 3) HISTORY PRE-OP DIAGNOSIS: PSA 4.8, progression, Grade III left lobe, Grade III ri ght lobe CLINICAL INFORMATION: Previous [facility] pathology 04/20/04 - prostatitis, davin gn prostatic hypertrophy GROSS DESCRIPTION 1) The specimen is received in formalin labelled Giulia Cretser, Left Prostate Lobe [place] and consists of three, barber, soft tissue cores measuring 1.4 cm., 1.3 cm., and 1.3 x 0.1 cm. Submitted entirely, one cassette. 2) The specimen is received in formalin labelled [place] Cretser, Left Prostate Lobe [place] and consists of three, barber, soft tissue cores measuring 1.9 cm., 1.7 cm., and 1.7 x 0.1 cm. Submitted entirely, one cassette. 3) The specimen is received in formalin labelled [place] Cretser, Right Prostate Lobe [place] and consists of three, barber, soft tissue cores measuring 2.0 cm., 2.0 cm., and 1.8 x 0.1 cm. Submitted entirely, one cassette. 4) The specimen is received in formalin labelled Giulia Cretser, Right Prostate Lobe Base and consists of three, barber, soft tissue cores measuring 2.3 cm., 1.7 cm., and 1.7 x 0.1 cm. Submitted entirely, one cassette. DIAGNOSIS 1) Prostate, left apex, core biopsies - A) High grade prostatic intraepithelial neoplasia. B) No invasive carcinoma identified. 2) Prostate, left base, core biopsies - A) Benign prostate and seminal vesicle tissue. B) No evidence of malignancy. 3) Prostate, right apex, core biopsies - A) Benign Prostate tissue . B) No evidence of malignancy. 4) Prostate, right base, core biopsies - -- DEPARTMENT OF PATHOLOGY, [address] [place] [address] [facility] Permit #[id number] Keven Quijano M.D. Director of Laboratories Odalis Gonzales II Pathologist -- -- RUN DATE: 03/20/07 [facility] NMI LIVE PAGE 2 RUN TIME: 3104 Specimen Inquiry RUN USER: INTERFACE -- SPEC #: [id number] PATIENT: GIULIA LORA #[id number] (Continued) -- DIAGNOSIS (Continued) A) Benign prostate tissue with partial atrophy. B) No evidence of malignancy. COMMENT A High Molecular weight keratin stain with appropriate control was performed with appropriate control on part 1 and supports the above rendered diagnosis. Signed Electronically by: KEVEN QUIJANO MD 03/20/07 1514 -- -- DEPARTMENT OF PATHOLOGY, [address] [place] [address] [facility] Permit #[id number] Keven Quijano M.D. Director of Laboratories Odalis Gonzales II Pathologist -- 88 * SERUM LEVELS OF PSA MEASURED USING THE JO[employer] Combat[employer] Gentlemen ACCESS HYBRITECH IMMUNOASSAY SHOULD NOT BE INTERPRETED ABSOLUTE EVIDENCE OF THE PRESENCE OR ABSENCE OF DISEASE. THE PSA VALUE SHOULD BE USED IN CONJUNCTION WITH OTHER PERTINENT CLINICAL DIAGNOSTIC PROCEDURES. 89 THERAPEUTIC TARGET FOR THE TREATMENT OF DIABETES MELLITUS PATIENTS IS <7% HBA1C, AND IN SELECTIVE PATIENTS <6.0%. PLEASE REFER TO [place] [employer] DIABETIC CARE GUIDELINES FOR FURTHER INFORMATION. 90 Anion gap measurement may be of limited value in the presence of any alkalosis, especially in a combined acid base disorder. . 91 * SERUM LEVELS OF PSA MEASURED USING THE [employer] Gentlemen ACCESS HYBRITECH IMMUNOASSAY SHOULD NOT BE INTERPRETED ABSOLUTE EVIDENCE OF THE PRESENCE OR ABSENCE OF DISEASE. THE PSA VALUE SHOULD BE USED IN CONJUNCTION WITH OTHER PERTINENT CLINICAL DIAGNOSTIC PROCEDURES. 92 Anion gap measurement may be of limited value in the presence of any alkalosis, especially in a combined acid base disorder. . 93 Classification: Desirable . 94 CALCULATED LDL APPROXIMATES THE VALUE OF A DIRECT LDL MEASUREMENT. Classification: Near or above optimal . 95 THERAPEUTIC TARGET FOR THE TREATMENT OF DIABETES MELLITUS PATIENTS IS <7% HBA1C. [place] [employer] DIABETES CARE 2002;25:S33-S49. . 96 FINAL: NO GROWTH DAY 2 97 REFERENCE RANGE: AM 8.7-22.4 PM LESS THAN 10 . 98 * SERUM LEVELS OF PSA MEASURED USING THE [employer] Combat[employer] Gentlemen ACCESS HYBRITECH IMMUNOASSAY SHOULD NOT BE INTERPRETED ABSOLUTE EVIDENCE OF THE PRESENCE OR ABSENCE OF DISEASE. THE PSA VALUE SHOULD BE USED IN CONJUNCTION WITH OTHER PERTINENT CLINICAL DIAGNOSTIC PROCEDURES. 99 Please note updated reference range, effective 03/26/02 . 100 Please note updated reference range, effective 03/26/02 . Procedures Date CPT Code Description Status 12/09/2015 74732 EKG, at Least 12 Leads w/Interpretation and Report Completed 09/07/2005 60529 EKG, at Least 12 Leads w/Interpretation and Report Completed 04/15/2002 94078 EKG, at Least 12 Leads w/Interpretation and Report Completed Encounters Type Date Location Provider CPT E/M Dx Office Visit 02/08/2018 11:45a [place] [address] I82.431 Office Visit 02/06/2018 4:30p Main Office Venita Matos M.D. 37671 R22.41 M79.1 E55.9 Z86.718 Office Visit 12/23/2016 9:45a Main Office Venita Matos M.D. 58403 R50.9 M79.1 S20.462A R35.0 Office Visit 12/15/2016 8:45a [place] [address] L02.416 Office Visit 09/06/2016 5:00p Main Office Venita Matos M.D. 91579 J01.90 Office Visit 08/18/2016 1:45p [place] [address] J01.90 Office Visit 12/09/2015 9:30a Main Office Venita Matos M.D. G0438 Z00.01 R97.2 E55.9 S30.861D M79.644 Z91.010 R03.0 Z86.718 Z23 Office Visit 12/06/2015 4:30p [place] [address] S30.861A Office Visit 09/08/2015 11:15a Main Office Venita Matos M.D. 23040 R97.2 E55.9 M79.1 R03.0 Office Visit 12/17/2014 11:15a Main Office Venita Matos M.D. 23676 453.40 729.1 Office Visit 10/16/2014 9:45a Main Office SUBHASH Mcgovern 69352 461.8 528.4 784.0 453.40 Office Visit 08/20/2014 10:15a Main Office Venita Matos M.D. 17964 V70.0 453.40 268.9 790.93 V18.0 729.1 Office Visit 06/23/2014 8:45a Main Office SUBHASH Mcgovern 34317 453.40 Office Visit 06/02/2014 12:00p Main Office SUBHASH Mcgovern 64233 782.3 Office Visit 04/14/2014 3:45p Main Office SUBHASH Clifton 57069 477.9 Office Visit 04/01/2013 4:30p Main Office Venita Matos M.D. 41173 789.9 724.5 Office Visit 03/26/2013 9:30a Main Office Venita Matos M.D. 44839 V70.0 790.93 E906.4 719.49 268.9 V18.0 272.0 V15.01 346.00 783.21 Office Visit 02/25/2013 9:30a Main Office SUBHASH Mcgovern 49659 381.9 Office Visit 04/10/2012 10:15a Main Office Venita Matos M.D. 74588 V70.0 550.90 268.9 346.10 790.93 782.0 V06.1 V03.82 V15.01 Office Visit 09/28/2011 10:45a Main Office Jona Saez M.D. 78881 550.90 787.91 Office Visit 11/03/2010 9:15a Main Office SUBHASH Clifton 60151 346.10 Office Visit 10/03/2010 10:00a Main Office SUBHASH Clifton 44830 346.10 Office Visit 09/26/2010 4:00p Main Office SUBHASH Clifton 30259 346.10 Office Visit 09/01/2010 10:15a Main Office Jona Saez M.D. 02280 346.10 Office Visit 02/09/2010 8:45a Main Office Rosemarie Chris PA-C 05520 995.3 Office Visit 12/06/2009 4:00p Main Office Rosemarie Chris PA-C 87991 381.01 995.3 Office Visit 03/08/2009 3:45p Main Office SUBHASH Clifton 76807 550.90 Office Visit 09/30/2008 11:45a Main Office Harriet Patton M.D., Akil 59650 789.9 686.9 Office Visit 09/25/2008 4:45p Main Office Harriet Patton M.D., R.D. 96314 686.9 Office Visit 07/21/2008 2:45p Main Office Venita Matos M.D. 91334 719.41 719.49 729.1 790.93 V17.7 Office Visit 05/02/2007 2:45p Main Office Ghislaine Rojo [facility] 22717 916.4 V73.5 Office Visit 01/21/2007 9:00a Main Office Venita Matos M.D. 20939 V70.0 V18.0 790.93 783.21 Office Visit 08/13/2006 10:15a Main Office Venita Matos M.D. 00930 461.8 784.0 Office Visit 09/07/2005 10:45a Main Office Marta Henriquez F.N.P.CDontae 18631 461.8 784.0 427.69 Office Visit 04/26/2004 4:00p Main Office Jona Saez M.D. 36118 455.5 Office Visit 03/02/2004 8:30a Main Office Venita Matos M.D. 32774 V18.0 V76.9 783.21 599.7 V70.0 Office Visit 11/11/2003 11:30a Main Office Venita Matos M.D. 68833 719.46 Office Visit 07/03/2003 9:15a Main Office Gal Vang.N.P.CDontae 03614 079.99 Office Visit 06/18/2002 3:15p Main Office Venita Matos M.D. 15188 784.0 780.4 473.9 V04.8 Office Visit 05/13/2002 9:30a Main Office Venita Matos M.D. 04647 780.4 784.0 V76.9 Office Visit 04/15/2002 9:30a Main Office Venita Matos M.D. 99465 461.0 780.4 Office Visit 02/21/2002 2:30p Main Office Theresa Valente, [place] 46304 780.2 Office Visit 11/27/2001 12:00p Main Office Madiha VangPDontaeCDontae 85468 473.9 Plan of Care 02/25/2018 - Venita Matos M.D.I82.431 Acute embolism and thrombosis of right popliteal veinComments:THIS IS ANOTHER DVT, OTHER LEG NOW, AND UNPROVOKED. FACTOR V HETEROZYGOTE BUT OTHERWISE PREVIOUS HYPERCOAGUABLE W/U NEGATIVE. DOING WELL WITH ELIQUIS. HAD HEMATURIA WITH LOVENOX IN THE PAST. HE IS TAKING THE SAMPLES OF ELIQUIS- HE WILL CHECK ON COST AT PHARMACY AND LET US KNOW IF COST PROHIBITIVE. COULD CONSIDER XARELTO OR COUMADIN- PERHAPS COULD DO HOME PT/INR MONITORING THIS TIME. DID HAVE SOME VARIATION IN PT/INR BUT NOT TERRIBLE CONTROL IN THE PAST. RECOMMENDED F/U WITH DR. MARIE AGAIN. PT AGREES.Follow up:-- REFER TO DR. MARIE FOR A CONSULT ON RECURRENT DVTRecommendations:-- SEE DR. MARIE FOR A CONSULT -- YOU WILL NEED TO STAY ON THE ELIQUIS/ BLOOD THINNER FOR AT LEAST 3 MONTHS, LIKELY 6 MONTHS AND THEN STAY ON A BLOOD THINNER LIFE-LONG SINCE THIS IS RECURRENT AND UNPROVOKED -- CHECK WITH THE PHARMACY FOR YOUR ELIQUIS COVERAGE AND LET ME KNOWZ12.11 Encounter for screening for malignant neoplasm of colonComments:PT OVERDUE FOR COLONOSCOPY BUT NOW ON ANTICOAGULANT, DISCUSSED COLOGUARD TESTING AND IF NEGATIVE, CAN CALLY 3 YEARS. PT DOES NOT WANT TO DO COLOGUARD, BUT WILL THINK ABOUT IT.Follow up: .Recommendations:-- LET ME KNOW IF YOU CHANGE YOUR MIND ABOUT DOING THE COLOGUARD STOOL DNA TEST
--- NOTE | 2018-03-26 14:10 | ED ---
HPI Chest Pain - HPI Summary HPI Summary: This pt is a 73 y/o male presenting to [facility] c/o mid sternal chest pain since a couple of hours ago. Pt reports he had just finished two bites to eat when he felt chest pain right after. He notes his chest pain is described as stabbing and is non radiating located in the mid sternum. His chest pain is intermittent lasting a couple of seconds and begins every time he breathes. Denies SOB, feeling clammy, diaphoresis, nausea, vomiting. There are no aggravating factors. PMHx includes DVT. He is currently on Eliquis once a day. Pt states 2-3 months ago he had swelling in bilateral ankle and had an US that confirmed DVT. Has upcoming appt with Dr. Barcenas this Sunday. - History of Current Complaint Chief Complaint: EDChestPainROMI Time Seen by Provider: 03/26/18 14:05 Hx Obtained From: Patient Onset/Duration: Started Hours Ago, Atraumatic, Still Present Timing: Intermittent, Lasting Seconds Current Severity: Moderate Pain Intensity: 4 Pain Scale Used: 0-10 Numeric Chest Pain Location: Mid Sternal Chest Pain Radiates: No Character: Sharp/Stabbing - stabbing Aggravating Factor(s): Nothing Alleviating Factor(s): Nothing Associated Signs and Symptoms: Positive: Chest Pain. Negative: Headaches, Shortness of Breath, Fever, Chills, Nausea, Vomiting - Allergy/Home Medications Allergies/Adverse Reactions: Allergies Allergy/AdvReac Type Severity Reaction Status Date / Time peanut Allergy Anaphylatic Verified 03/26/18 14:16 Shock Home Medications: Home Medications Apixaban* [Eliquis*] 5 mg PO DAILY 03/26/18 [History Confirmed 03/26/18] PMH/Surg Hx/FS Hx/Imm Hx Endocrine/Hematology History: Denies: Hx Diabetes Cardiovascular History: Reports: Hx Deep Vein Thrombosis Denies: Hx Hypertension History: Reports: Other Problems/Disorders - hx of kidney stone-passed - Surgical History Surgery Procedure, Year, and Place: no pertinent surgeries - Immunization History Date of Tetanus Vaccine: over 10 years ago Date of Influenza Vaccine: none Infectious Disease History: No Infectious Disease History: Denies: Traveled Outside the [place] in Last 30 Days - Family History Known Family History: Negative: Cardiac Disease, Hypertension, Diabetes - Social History Alcohol Use: Rare Substance Use Type: Reports: None Smoking Status (MU): Former Smoker Review of Systems Negative: Fever, Chills, Skin Diaphoresis Positive: Chest Pain Negative: Shortness Of Breath Negative: Vomiting, Nausea Musculoskeletal: Negative Skin: Negative All Other Systems Reviewed And Are Negative: Yes Physical Exam - Summary Physical Exam Summary: Appearance: The patient is well-nourished in no acute distress and in no acute pain. Skin: The skin is warm and dry and skin color reflects adequate perfusion. HEENT: The head is normocephalic and atraumatic. The pupils are equal and reactive. The conjunctivae are clear and without drainage. Nares are patent and without drainage. Mouth reveals moist mucous membranes and the throat is without erythema and exudate. The external ears are intact. The ear canals are patent and without drainage. The tympanic membranes are intact. Neck: the neck is supple with full range of motion and non-tender. There are no carotid bruits. There is no neck vein distension. Respiratory: Chest is non-tender. Lungs are clear to auscultation and breath sounds are symmetrical and equal. Cardiovascular: Heart is regular rate and rhythm. There is no murmur or rub auscultated. There is no peripheral edema and pulses are symmetrical and equal. Abdomen: The abdomen is soft and non-tender. There are normal bowel sounds heard in all four quadrants and there is no organomegaly palpated. Musculoskeletal: There is no back tenderness noted. Extremities are non-tender with full range of motion. There is good capillary refill. There is no peripheral edema or calf tenderness elicited. Neurological: Patient is alert and oriented to person, place and time. The patient has symmetrical motor strength in all four extremities. Cranial nerves are grossly intact. Deep tendon reflexes are symmetrical and equal in all four extremities. Psychiatric: The patient has an appropriate affect and does not exhibit any anxiety or depression. Triage Information Reviewed: Yes Vital Signs On Initial Exam: Initial Vitals Temp Pulse Resp BP Pulse Ox 98.3 F 80 17 174/91 100 03/26/18 13:47 03/26/18 13:47 03/26/18 13:47 03/26/18 13:47 03/26/18 13:47 Vital Signs Reviewed: Yes Diagnostics - Vital Signs Vital Signs Temp Pulse Resp BP Pulse Ox 03/26/18 13:47 98.3 F 80 17 174/91 100 - Laboratory Result Diagrams: 03/26/18 14:39 03/26/18 14:39 Lab Statement: Any lab studies that have been ordered have been reviewed, and results considered in the medical decision making process. - CT CTA Chest CT Interpretation: No Acute Changes - IMPRESSION: No evidence of pulmonary embolus is noted. No alveolar consolidation is noted. No evidence of thoracic aortic dissection is noted. Dr. Darden has reviewed this report. CT Interpretation Completed By: Radiologist - EKG 13:52 Cardiac Rate: NL - at 74 bpm EKG Rhythm: Sinus Rhythm EKG Interpretation: No STEMI. Re-Evaluation - Re-Evaluation First Eval Re-Evaluation Time: 16:57 Comment: I reviewed the lab results with the pt. Second Eval Re-Evaluation Time: 18:02 Comment: Reviewed CTA results with pt. He will be discharged home. Chest Pain Course/Dx - Course Course Of Treatment: Mr. Avila presented with a mild chest pain after eating. The chest pain was pleuritic and not associated with any other symptomatology including shortness of breath. He is on a request for DVTs. Labs including a delayed troponin and CTA chest are negative for acute pathology as is his EKG. I don't think anything dangerous is happening in his symptomatology did improve while he was here. I recommended close follow-up with his PCP - Diagnoses Provider Diagnoses: Chest pain Discharge - Sign-Out/Discharge Documenting (check all that apply): Patient Departure - Discharge - Discharge Plan Condition: Stable Disposition: HOME Patient Education Materials: Chest Pain (ED) Referrals: Venita Matos MD [Primary Care Provider] - Additional Instructions: Please follow up with your primary care provider in 2-3 days. RETURN TO THE ED FOR ANY WORSENING SYMPTOMS. - Billing Disposition and Condition Condition: STABLE Disposition: Home - Attestation Statements Document Initiated by Scribe: Yes Documenting Scribe: Ameena Barth Provider For Whom Danielle is Documenting (Include Credential): Mian Dardne MD Scribe Attestation: Ameena Garza, scribed for Mian Darden MD on 03/26/18 at 1925. Scribe Documentation Reviewed: Yes Provider Attestation: The documentation as recorded by the Ameena rosario accurately reflects the service I personally performed and the decisions made by me, Mian Darden MD
[2018-03-26 14:53] LABS: ABS Basophils 0 10^3/ul (0-0.2); ABS Eosinophils 0.2 10^3/ul (0-0.6); ABS Lymphocytes 1.7 10^3/ul (1.0-4.8); ABS Monocytes 0.6 10^3/ul (0-0.8); ABS Neutrophils 4.1 10^3/ul (1.5-7.7); ABS Nucleated RBC 0 10^3/ul; Eosinophil % 2.7 % (0-6); Hematocrit 43 % (42-52); Hemoglobin 14.4 g/dl (14.0-18.0); Lymphocyte % 25.4 % (25-47); Mean Corpuscular HGB Conc 34 g/dl (31-36); Mean Corpuscular Hemoglobin 31 pg (27-31); Mean Corpuscular Volume 94 fL (80-94); Mean Platelet Volume 8.4 um3 (7.4-10.4); Nucleated Red Blood Cells % 0.1; Platelet Count 203 10^3/ul (150-450); Red Blood Count 4.58 10^6/ul (4.00-5.40); Red Cell Distribution Width 13 % (10.5-15); White Blood Count 6.7 10^3/ul (3.5-10.8)
[2018-03-26 15:16] LABS: EGFR Non-African American 60.1 (>60)
[2018-03-26] MEDS ORDERED: Iohexol 350* (CONTRAST) 500 ML MDV IV ONE (17:10)
--- NOTE | 2018-03-26 17:36 | RAD ---
Indication: Shortness of breath breath, pulmonary embolus. Contrast: Administered 66.0 ml of Contrast -- mg/ml CTA of the chest performed after IV contrast administration. Coronal and sagittal reconstructed images were obtained. The pulmonary arterial tree is well opacified. There are no filling defects present to suggest pulmonary embolus. The thoracic aorta demonstrates no evidence of aneurysmal dilatation or aortic dissection. There is no mediastinal or hilar adenopathy noted. The heart demonstrates no pericardial effusion. The trachea and major bronchi appear patent. The lung apices demonstrates right apical scarring. No evidence of alveolar consolidation is noted. No pleural fluid is identified. Dependent changes are noted. The left lung field appears clear without evidence of nodules or alveolar consolidation. The axilla demonstrates no evidence of abnormal adenopathy. The visualized abdominal organs are grossly unremarkable. IMPRESSION: No evidence of pulmonary embolus is noted. No alveolar consolidation is noted. No evidence of thoracic aortic dissection is noted.
[2018-03-26 18:30] VITALS: BP 154/83
== END 2018-03-26 18:28 | disposition home or self-care (01) ==
LOC: ED 13:45
DX: R07.9 Chest pain, unspecified (principal); Z91.018 Allergy to other foods; Z87.891 Personal history of nicotine dependence
CPT/HCPCS: 36415; 71275; 80053; 83605; 84484; 85025; 85379; 93005; 99283; Q9967

== ENCOUNTER 2018-10-03 05:39 | Day surgery (SDC) | payer MEDICARE ==
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
[2018-10-03] MEDS ORDERED: Lactated Ringers 1000 ML Bag* 1,000 ML IV SCH (06:00)
[2018-10-03] MEDS ORDERED: ceFAZolin 2 GM in NS PREMIX(*) 2 GM/100 ML BAG IVPB ONE (06:13)
[2018-10-03] MEDS ORDERED: Heparin VIAL(*) 5000 UNITS/ML VIAL (FIVE THOUSAND) ONE (06:16)
[2018-10-03] MEDS: Buffered Lidocaine 1% SYRIN* 1 ML/SYRINGE INTRADERM ONE ×2 (06:25→06:55)
[2018-10-03] MEDS ORDERED: Bupivacaine 0.25% W/EPI* 10 ML SDV ONE (06:54)
[2018-10-03] MEDS ORDERED: Rocuronium* 10 MG/ML VIAL ONE (07:30)
[2018-10-03] MEDS ORDERED: fentaNYL* 50 MCG/ML 2 ML VIAL (100 MCG VIAL) ONE ×3 (07:30→11:36)
[2018-10-03] MEDS ORDERED: Propofol* 10 MG/ML 20 ML BTL ONE (07:30)
[2018-10-03] MEDS ORDERED: Midazolam* 1 MG/ML 2 ML VIAL (2 MG) ONE (07:31)
[2018-10-03] MEDS ORDERED: Dexamethasone IV* 4 MG/ML 1 ML (4 MG) ONE (08:01)
[2018-10-03] MEDS ORDERED: Naloxone* 0.4 MG/ML 1 ML VIAL IV PRN (08:18)
[2018-10-03] MEDS ORDERED: Ondansetron INJ* 2 MG/ML VIAL IV PRN (08:18)
[2018-10-03] MEDS ORDERED: DiMENhydriNATE IV* 50 MG/ML VIAL IV PUSH PRN (08:18)
[2018-10-03] MEDS ORDERED: HYDROmorphone INJ1* 1 MG/ML SYRINGE IV PRN (08:18)
[2018-10-03] MEDS ORDERED: Glycopyrrolate IV* 0.2 MG/ML 1 ML VIAL ONE (08:45)
--- NOTE | 2018-10-03 09:02 | OP ---
Operative Report - Blank - Operative Report Date of Operation: 10/03/18 Note: Brief Operative Note Preop Dx: bilateral inguinal and umbilical hernias Postop Dx: same (bilat direct inguinal hernias) Procedure: laparoscopic repair bilat inguinal hernias w/ mesh; open repair umbilical hernia w/ mesh Anesthesia: GET Surgeon: Radhames [employer] Dean: WONG White Fluids: 1300 ml RL EBL: < 10 ml Specimen: none Drains: none Findings: dictated
[2018-10-03] MEDS ORDERED: oxyCODONE/Acetamin 5/325 MG* TAB ONE ×2 (09:34→10:30)
[2018-10-03] MEDS: oxyCODONE/Acetamin 5/325 MG* TAB PO PRN ×2 (09:35→10:31)
--- NOTE | 2018-10-03 09:38 | OP ---
CC: Dr. Doug Ricci; Dr. Venita Matos OPERATIVE REPORT: DATE OF OPERATION: 10/03/18 DATE OF : 47 SURGEON: Doug Ricci MD. RECORDS MANAGER: WONG White. ANESTHESIOLOGIST: Dr. Jaimes. ANESTHESIA: General anesthetic, local infiltration. PRE-OP DIAGNOSIS: Bilateral inguinal hernias and umbilical hernia. POST-OP DIAGNOSIS: Bilateral inguinal hernias and umbilical hernia. OPERATIVE PROCEDURE: Laparoscopic repair of bilateral inguinal hernias and umbilical hernia repair w ith mesh. DESCRIPTION OF PROCEDURE: The patient was supine on the operating room table. After adequate general anesthetic, compression stockings, Fady-Hugger warmer, and intravenous antibiotics, the abdomen and groins were prepped with antiseptic and draped in a sterile fashion. Local infiltrative anesthesia w as administered. Curvilinear infraumbilical incision was created and dissection was carried down to t he linea alba, the rectus sheath, which was entered in the midline and the preperitoneal plane was en tered. The balloon insufflator was used to dissect out the preperitoneal plane. Two 5-mm cannulas w ere placed to the left and to the right of midline and the preperitoneal plane had additional blunt d issection until it was well visualized. There were 2 direct space hernias. There was no indirect sp vicenta hernia. The peritoneal sac was readily identified at the indirect space and was dissected back a little further, but there was no definite hernia. In each case, a preformed 3-dimensional patch was chosen, the large size, and it was put into place. They overlapped by about a centimeter in the mid line and a couple of absorbable tacks were used to hold them in position. Then the pneumoperitoneum was allowed to escape and the preperitoneal plane closed over the mesh. There was excellent coverage . Attention was then turned to the umbilicus where the umbilical hernia was dissected free and reduc ed and the preperitoneal plane was developed and a 6.4 cm underlay patch was utilized. This was sutu red in 4 quadrants using 0 Vicryl up underneath and then the fascia was closed over top. The fascial incision from the first part of the surgery was also closed with 0 Vicryl. The umbilical skin and t he adipose was reapproximated with 3-0 Vicryl and then the skin closed in all cases with 5-0 Vicryl f ollowed by Steri-Strips. He tolerated the procedure well and was awakened and brought to Recovery in good condition. There were no complications, no drains, no pathologic specimens. Sponge and instru ment counts were correct. Estimated blood loss was less than 20 mL. [id number]/[facility] #: [id number]
[2018-10-03] MEDS: fentaNYL* 50 MCG/ML 2 ML VIAL (100 MCG VIAL) IV PRN ×2 (11:36→11:41)
[2018-10-03 12:26] VITALS: BP 141/79
== END 2018-10-03 12:28 | disposition home or self-care (01) ==
LOC: OR 05:39
PROVIDERS: ATTEND Surgery
DX: K40.20 Bilateral inguinal hernia, without obstruction or gangrene, not specified as recurrent (principal); K42.9 Umbilical hernia without obstruction or gangrene; Z86.718 Personal history of other venous thrombosis and embolism; Z79.01 Long term (current) use of anticoagulants; Z87.891 Personal history of nicotine dependence
CPT/HCPCS: A9270-GY; C1776; C1781; J0690; J1100; J1644; J2250; J2704; J3010

== ENCOUNTER 2021-08-03 16:25 | Inpatient (IN) ==
[2021-08-03 17:39] LABS: ABS Eosinophils 0.1 10^3/ul (0-0.6); ABS Lymphocytes 1.3 10^3/ul (1.0-4.8); ABS Monocytes 0.6 10^3/ul (0-0.8); ABS Neutrophils 4.9 10^3/ul (1.5-7.7); Eosinophil % 0.8 %; Hematocrit 45 % (42-52); Hemoglobin 14.9 g/dL (14.0-18.0); Lymphocyte % 18.7 %; Mean Corpuscular HGB Conc 34 g/dL (31-36); Mean Corpuscular Hemoglobin 32 pg (27-31); Mean Corpuscular Volume 94 fL (80-94); Platelet Count 194 10^3/uL (150-450); Red Blood Count 4.72 10^6 /uL (4.18-5.48); Red Cell Distribution Width 13 % (10-15); White Blood Count 6.9 10^3/uL (3.5-10.8)
[2021-08-03 17:49] LABS: Activated Partial Thrombo Time 37.4 seconds (26.0-38.0); INR 1.19 (0.86-1.15)
[2021-08-03 17:56] LABS: ALT 11 U/L (7-52); AST 15 U/L (13-39); Albumin 4.4 g/dL (3.2-5.2); Albumin/Globulin Ratio 1.8 (1-3); Alkaline Phosphatase 48 U/L (35-149); Anion Gap 6 mmol/L (2-11); Blood Urea Nitrogen 18 mg/dL (6-24); C Reactive Protein < 1.00 mg/L (<8.01); CO2 Carbon Dioxide 27 mmol/L (22-32); Calcium 9.3 mg/dL (8.6-10.3); Chloride 107 mmol/L (101-111); Globulin 2.5 g/dL (2-4); Glucose 99 mg/dL (70-100); Sodium 140 mmol/L (135-145); Total Protein 6.9 g/dL (6.4-8.9); Troponin I 0.01 ng/mL (<0.03); eGFR CKD-EPI 59.5 (>60)
[2021-08-03] MEDS ORDERED: Iodixanol (CONTRAST) 320 MG/ML 100 ML SDV IV ONE (19:02)
[2021-08-03] MEDS ORDERED: Prothrombin Complex Conc. DOSE = Units Factor IX (nine) IV SLOW PU ONE (19:44)
[2021-08-03] MEDS ORDERED: Dexamethasone IV 4 MG/ML VIAL 1 ml VIAL IV SLOW PU ONE (20:02)
[2021-08-03] MEDS ORDERED: levETIRAcetam 1000MG IVPREMIX 1,000 MG/100 ML BAG IVPB ONE (20:03)
[2021-08-03] MEDS ORDERED: niCARdipine 0.1MG/ML IVPREMIX 20 MG/200 ML BAG IV SCH ×2 (21:00→21:56)
[2021-08-03] MEDS ORDERED: Gadoteridol (CONTRAST) 279.3 MG/ML 10 ML IV ONE (21:25)
[2021-08-03] MEDS: Dexamethasone IV 4 MG/ML VIAL 1 ml VIAL IV SLOW PU SCH (21:43)
[2021-08-03] MEDS: levETIRAcetam 500 MG IVPREMIX 500 MG/100 ML BAG IV SCH ×2 (21:43→21:44)
[2021-08-03] MEDS ORDERED: Labetalol IV 5 MG/ML 20 ml VIAL IV PUSH PRN (22:03)
[2021-08-04 05:12] LABS: ABS Lymphocytes 0.6 10^3/ul (1.0-4.8); ABS Monocytes 0.2 10^3/ul (0-0.8); ABS Neutrophils 5.7 10^3/ul (1.5-7.7); Hematocrit 43 % (42-52); Hemoglobin 14.3 g/dL (14.0-18.0); Lymphocyte % 8.6 %; Mean Corpuscular HGB Conc 34 g/dL (31-36); Mean Corpuscular Hemoglobin 32 pg (27-31); Mean Corpuscular Volume 94 fL (80-94); Mean Platelet Volume 7.9 fL (7.4-10.4); Platelet Count 187 10^3/uL (150-450); Red Blood Count 4.54 10^6 /uL (4.18-5.48); Red Cell Distribution Width 13 % (10-15); White Blood Count 6.5 10^3/uL (3.5-10.8)
[2021-08-04 05:18] LABS: INR 1.06 (0.86-1.15)
[2021-08-04 05:38] LABS: Albumin 3.9 g/dL (3.2-5.2); Albumin/Globulin Ratio 1.5 (1-3); Calcium 8.8 mg/dL (8.6-10.3); Globulin 2.6 g/dL (2-4); Potassium 4.4 mmol/L (3.5-5.0); Total Bilirubin 2.6 mg/dL (0.2-1.0); Total Protein 6.5 g/dL (6.4-8.9); eGFR CKD-EPI 70.8 (>60)
[2021-08-04] MEDS ORDERED: levETIRAcetam 500 MG IVPREMIX 500 MG/100 ML BAG IV SCH (06:00)
[2021-08-04] MEDS: Dexamethasone IV 4 MG/ML VIAL 1 ml VIAL IV SLOW PU SCH ×3 (06:18→21:54)
[2021-08-04] MEDS ORDERED: Iohexol 300 (CONTRAST) 10 ML SDV IV ONE (16:27)
[2021-08-05] MEDS: Dexamethasone IV 4 MG/ML VIAL 1 ml VIAL IV SLOW PU SCH ×2 (06:13→14:08)
[2021-08-05 06:31] LABS: Hematocrit 40 % (42-52); Hemoglobin 13.7 g/dL (14.0-18.0); Mean Corpuscular HGB Conc 34 g/dL (31-36); Mean Corpuscular Hemoglobin 32 pg (27-31); Mean Corpuscular Volume 93 fL (80-94); Platelet Count 183 10^3/uL (150-450); Red Blood Count 4.26 10^6 /uL (4.18-5.48); Red Cell Distribution Width 13 % (10-15)
[2021-08-05 06:55] LABS: Calcium 8.8 mg/dL (8.6-10.3); Potassium 4.4 mmol/L (3.5-5.0); eGFR CKD-EPI 65.7 (>60)
[2021-08-05] MEDS ORDERED: CMC:Alfuzosin ER 10 mg TAB.ER (NF) 10 MG TAB.ER PO SCH (09:00)
[2021-08-05 11:25] VITALS: BP 124/70
== END 2021-08-05 15:45 | disposition home or self-care (01) | DRG 64 ==
LOC: ED 16:25 → EDHOLD 21:21 → SUATTDRO 21:21 → SSU 23:47
PROVIDERS: ADMIT Student in an Organized Health Care Education/Training Program; ATTEND Internal Medicine

== ENCOUNTER 2021-09-10 11:02 | Inpatient (IN) ==
[2021-09-10 17:50] LABS: ABS Eosinophils 0.1 10^3/ul (0-0.6); ABS Lymphocytes 1.4 10^3/ul (1.0-4.8); ABS Monocytes 0.7 10^3/ul (0-0.8); ABS Neutrophils 4.4 10^3/ul (1.5-7.7); Hematocrit 44 % (42-52); Hemoglobin 14.7 g/dL (14.0-18.0); Lymphocyte % 20.8 %; Mean Corpuscular HGB Conc 34 g/dL (31-36); Mean Corpuscular Hemoglobin 32 pg (27-31); Mean Corpuscular Volume 94 fL (80-94); Mean Platelet Volume 7.8 fL (7.4-10.4); Platelet Count 194 10^3/uL (150-450); Red Blood Count 4.67 10^6 /uL (4.18-5.48); Red Cell Distribution Width 13 % (10-15); White Blood Count 6.5 10^3/uL (3.5-10.8)
[2021-09-10 17:58] LABS: Activated Partial Thrombo Time 34.5 seconds (26.0-38.0); INR 1.07 (0.86-1.15)
[2021-09-10 18:06] LABS: Calcium 9.7 mg/dL (8.6-10.3); Potassium 3.8 mmol/L (3.5-5.0); eGFR CKD-EPI 67.1 (>60)
[2021-09-11] MEDS: CMCS: Alfuzosin ER 10 mg TAB.ER (NF) 10 MG TAB.ER PO SCH (07:42)
[2021-09-12] MEDS: CMCS: Alfuzosin ER 10 mg TAB.ER (NF) 10 MG TAB.ER PO SCH ×2 (07:58→08:05)
[2021-09-12 08:14] VITALS: BP 140/74
[2021-09-12] MEDS ORDERED: CMCS: Alfuzosin ER 10 mg TAB.ER (NF) 10 MG TAB.ER PO SCH (21:00)
== END 2021-09-12 16:35 | disposition home or self-care (01) | DRG 301 ==
LOC: ED 11:02 → EDHOLD 18:14 → SUATTDRO 18:14 → MEDTELE 23:28
PROVIDERS: ADMIT Internal Medicine; ATTEND Hospitalist

== ENCOUNTER 2021-10-23 19:07 | Observation (INO) ==
[2021-10-23 19:52] LABS: ABS Eosinophils 0.2 10^3/ul (0-0.6); ABS Lymphocytes 1.5 10^3/ul (1.0-4.8); ABS Monocytes 0.5 10^3/ul (0-0.8); ABS Neutrophils 4.6 10^3/ul (1.5-7.7); Eosinophil % 2.4 %; Hematocrit 41 % (42-52); Hemoglobin 13.8 g/dL (14.0-18.0); Lymphocyte % 21.9 %; Mean Corpuscular HGB Conc 33 g/dL (31-36); Mean Corpuscular Hemoglobin 31 pg (27-31); Mean Corpuscular Volume 94 fL (80-94); Mean Platelet Volume 7.8 fL (7.4-10.4); Nucleated Red Blood Cells % 0.1; Platelet Count 177 10^3/uL (150-450); Red Blood Count 4.39 10^6 /uL (4.18-5.48); Red Cell Distribution Width 13 % (10-15); White Blood Count 6.9 10^3/uL (3.5-10.8)
[2021-10-23 20:02] LABS: INR 1.1 (0.86-1.15)
[2021-10-23 20:24] LABS: Albumin 4.4 g/dL (3.2-5.2); Albumin/Globulin Ratio 1.9 (1-3); Globulin 2.3 g/dL (2-4); Total Bilirubin 1.4 mg/dL (0.2-1.0); Total Protein 6.7 g/dL (6.4-8.9); eGFR CKD-EPI 60.6 (>60)
[2021-10-23 22:01] LABS: High Sensitivity Troponin 1 Hr 4 pg/mL (<20)
[2021-10-23] MEDS ORDERED: Iohexol 350 (CONTRAST) 500 ML MDV IV ONE (22:45)
[2021-10-24 00:45] LABS: ABS Eosinophils 0.1 10^3/ul (0-0.6); ABS Lymphocytes 1.1 10^3/ul (1.0-4.8); ABS Monocytes 0.8 10^3/ul (0-0.8); ABS Neutrophils 5.5 10^3/ul (1.5-7.7); Eosinophil % 1.8 %; Hematocrit 40 % (42-52); Hemoglobin 13.3 g/dL (14.0-18.0); Mean Corpuscular HGB Conc 34 g/dL (31-36); Mean Corpuscular Hemoglobin 31 pg (27-31); Mean Corpuscular Volume 93 fL (80-94); Mean Platelet Volume 8.1 fL (7.4-10.4); Nucleated Red Blood Cells % 0.1; Platelet Count 181 10^3/uL (150-450); Red Blood Count 4.26 10^6 /uL (4.18-5.48); Red Cell Distribution Width 14 % (10-15); White Blood Count 7.5 10^3/uL (3.5-10.8)
[2021-10-24] MEDS ORDERED: Heparin DRIP 25,000 UNITS BAG 25,000 UNITS/500 ML BAG IV SCH ×4 (01:14→15:00)
[2021-10-24 01:29] LABS: eGFR CKD-EPI 67.1 (>60)
[2021-10-24] MEDS ORDERED: Ondansetron 4 mg VIAL 2 MG/ML 2 ml VIAL IV PRN (02:18)
[2021-10-24] MEDS ORDERED: NS 0.9% 1000 ml BAG 1,000 ML IV SCH (02:30)
[2021-10-24] MEDS: CMCS:Alfuzosin ER 10 mg TAB.ER (NF) 10 MG TAB.ER PO SCH ×4 (02:56→21:26)
[2021-10-24] MEDS ORDERED: Heparin 5000 UNITS/ML 1 mL VIAL IV SCH ×2 (15:00)
[2021-10-24] MEDS ORDERED: Heparin 2 UNITS/ML 1000 mls 1,000 ML IV ONE (15:58)
[2021-10-25 07:09] LABS: ABS Eosinophils 0.1 10^3/ul (0-0.6); ABS Lymphocytes 1.1 10^3/ul (1.0-4.8); ABS Monocytes 0.7 10^3/ul (0-0.8); ABS Neutrophils 3.9 10^3/ul (1.5-7.7); Eosinophil % 2.5 %; Hematocrit 40 % (42-52); Hemoglobin 13.5 g/dL (14.0-18.0); Lymphocyte % 18.5 %; Mean Corpuscular HGB Conc 34 g/dL (31-36); Mean Corpuscular Hemoglobin 31 pg (27-31); Mean Corpuscular Volume 93 fL (80-94); Mean Platelet Volume 8.2 fL (7.4-10.4); Platelet Count 169 10^3/uL (150-450); Red Blood Count 4.31 10^6 /uL (4.18-5.48); Red Cell Distribution Width 14 % (10-15); White Blood Count 5.8 10^3/uL (3.5-10.8)
[2021-10-25 07:39] VITALS: BP 135/72
== END 2021-10-25 12:24 | disposition home or self-care (01) ==
LOC: ED 19:07 → EDHOLD 19:07 → MEDTELE 19:07 → OBSVTOIN 10-24 02:18 → SUATTDRO 10-24 02:18 → EDHOLD 10-24 02:18 → INTOOBSV 10-24 02:18 → EDHOLD 10-24 17:45 → MEDTELE 10-24 18:33
PROVIDERS: ADMIT Hospitalist; ATTEND Internal Medicine

== ENCOUNTER 2023-06-10 17:23 | Inpatient (IN) ==
[2023-06-10 23:00] LABS: ABS Eosinophils 0.1 10^3/uL (0.0-0.5); ABS Lymphocytes 0.9 10^3/uL (1.0-4.8); ABS Monocytes 0.6 10^3/uL (0.0-1.1); ABS Neutrophils 3.2 10^3/uL (1.5-7.6); ABS Nucleated RBC 0.01 10^3/ul; Eosinophil % 2.1 %; Hematocrit 42.2 % (38-53); Hemoglobin 14.3 g/dL (13.2-16.3); Lymphocyte % 18.3 %; Mean Corpuscular Hemoglobin 32.4 pg (27-33); Mean Corpuscular Volume 95.3 fL (80-97); Mean Platelet Volume 7.2 fL (7.5-11.2); Nucleated Red Blood Cells % 0.2 %/100WBC (0.0-0.8); Platelet Count 191 10^3/uL (150-450); Red Blood Count 4.43 10^6/uL (4.06-5.63); Red Cell Distribution Width 13.5 % (12-17); White Blood Count 4.7 10^3/uL (3.6-10.2)
[2023-06-10 23:20] LABS: Albumin 4.4 g/dL (3.2-5.2); Albumin/Globulin Ratio 1.6 (1-3); Calcium 9.7 mg/dL (8.6-10.3); Creatinine, Serum 1.25 mg/dL (0.67-1.17); Globulin 2.7 g/dL (2-4); Magnesium 1.8 mg/dL (1.9-2.7); Total Bilirubin 1.6 mg/dL (0.2-1.0); Total Protein 7.1 g/dL (6.4-8.9); eGFR CKD-EPI 59.3 (>60)
[2023-06-10 23:56] LABS: Urine Appearance Clear; Urine Bilirubin Negative (Negative); Urine Blood Negative (Negative); Urine Color Yellow; Urine Glucose Negative (Negative); Urine Ketones Negative (Negative); Urine Nitrite Negative (Negative); Urine Protein Negative (Negative); Urine Specific Gravity 1.019 (1.002-1.030); Urine Urobilinogen Negative (Negative)
[2023-06-11] MEDS ORDERED: Dexamethasone IV 4 MG/ML VIAL 1 ml VIAL IV SLOW PU ONE (00:17)
[2023-06-11 02:40] LABS: TSH Ultra Thyroid Stim Horm 2.44 mcIU/mL (0.34-5.60)
[2023-06-11 06:52] LABS: ABS Lymphocytes 0.4 10^3/uL (1.0-4.8); ABS Monocytes 0.1 10^3/uL (0.0-1.1); ABS Neutrophils 4.6 10^3/uL (1.5-7.6); Eosinophil % 0.1 %; Hematocrit 39.5 % (38-53); Hemoglobin 13.5 g/dL (13.2-16.3); Lymphocyte % 7.8 %; Mean Corpuscular Hemoglobin 32.2 pg (27-33); Mean Corpuscular Volume 94.6 fL (80-97); Nucleated Red Blood Cells % 0.1 %/100WBC (0.0-0.8); Platelet Count 170 10^3/uL (150-450); Red Blood Count 4.18 10^6/uL (4.06-5.63); Red Cell Distribution Width 13.2 % (12-17); White Blood Count 5.2 10^3/uL (3.6-10.2)
[2023-06-11 08:53] LABS: Calcium 9.1 mg/dL (8.6-10.3); Creatinine, Serum 1.09 mg/dL (0.67-1.17); Magnesium 1.8 mg/dL (1.9-2.7); Potassium 3.7 mmol/L (3.5-5.0); eGFR CKD-EPI 69.9 (>60)
[2023-06-12 09:24] LABS: ABS Eosinophils 0.1 10^3/uL (0.0-0.5); ABS Lymphocytes 1.4 10^3/uL (1.0-4.8); ABS Monocytes 0.7 10^3/uL (0.0-1.1); ABS Neutrophils 5.1 10^3/uL (1.5-7.6); ABS Nucleated RBC 0.01 10^3/ul; Hematocrit 43.1 % (38-53); Hemoglobin 15.2 g/dL (13.2-16.3); Lymphocyte % 18.9 %; Mean Corpuscular Hemoglobin 33.2 pg (27-33); Mean Corpuscular Hgb Conc 35.2 g/dL (31-36); Mean Corpuscular Volume 94.3 fL (80-97); Mean Platelet Volume 7.5 fL (7.5-11.2); Nucleated Red Blood Cells % 0.1 %/100WBC (0.0-0.8); Platelet Count 190 10^3/uL (150-450); Red Blood Count 4.57 10^6/uL (4.06-5.63); Red Cell Distribution Width 13.6 % (12-17); White Blood Count 7.3 10^3/uL (3.6-10.2)
[2023-06-12 10:17] LABS: Calcium 9.7 mg/dL (8.6-10.3); Creatinine, Serum 1.24 mg/dL (0.67-1.17); Potassium 3.7 mmol/L (3.5-5.0); eGFR CKD-EPI 59.9 (>60)
[2023-06-13 10:58] LABS: Calcium 9.4 mg/dL (8.6-10.3); Creatinine, Serum 1.21 mg/dL (0.67-1.17); Magnesium 1.8 mg/dL (1.9-2.7); eGFR CKD-EPI 61.7 (>60)
[2023-06-15 06:08] LABS: ABS Eosinophils 0.2 10^3/uL (0.0-0.5); ABS Monocytes 0.7 10^3/uL (0.0-1.1); Eosinophil % 4.3 %; Hematocrit 41.4 % (38-53); Hemoglobin 14.2 g/dL (13.2-16.3); Lymphocyte % 19.6 %; Mean Corpuscular Hemoglobin 32.6 pg (27-33); Mean Corpuscular Hgb Conc 34.3 g/dL (31-36); Mean Corpuscular Volume 95.1 fL (80-97); Mean Platelet Volume 7.3 fL (7.5-11.2); Nucleated Red Blood Cells % 0.1 %/100WBC (0.0-0.8); Platelet Count 151 10^3/uL (150-450); Red Blood Count 4.35 10^6/uL (4.06-5.63); Red Cell Distribution Width 13.7 % (12-17); White Blood Count 4.9 10^3/uL (3.6-10.2)
[2023-06-15 06:25] LABS: Calcium 9.3 mg/dL (8.6-10.3); Creatinine, Serum 1.08 mg/dL (0.67-1.17); Magnesium 1.8 mg/dL (1.9-2.7); Potassium 4.2 mmol/L (3.5-5.0); eGFR CKD-EPI 70.7 (>60)
[2023-06-15] MEDS ORDERED: Lorazepam PYXIS KEY PRN (20:46)
[2023-06-15] MEDS ORDERED: LORazepam 2 mg VIAL 1 ml IV PUSH PRN (20:46)
[2023-06-15] MEDS: Acetaminophen IV 1 GM/100ML 1,000 MG/100 ML BAG IV PRN (22:51)
[2023-06-16] MEDS: Acetaminophen IV 1 GM/100ML 1,000 MG/100 ML BAG IV PRN (11:39)
[2023-06-17] MEDS: Polyethylene Glycol 3350 17 GM PACKET PO SCH (10:40)
[2023-06-18] MEDS: Acetaminophen IV 1 GM/100ML 1,000 MG/100 ML BAG IV PRN (10:15)
[2023-06-18] MEDS: Polyethylene Glycol 3350 17 GM PACKET PO SCH (10:21)
[2023-06-18] MEDS: Morphine 2 MG/ML SYRINGE IV PRN (14:17)
[2023-06-18] MEDS ORDERED: Ondansetron ODT 4 mg TAB 4 MG TAB SL PRN (15:10)
[2023-06-19] MEDS: Polyethylene Glycol 3350 17 GM PACKET PO SCH (10:34)
[2023-06-19] MEDS: Acetaminophen IV 1 GM/100ML 1,000 MG/100 ML BAG IV PRN (10:38)
[2023-06-19] MEDS: Morphine 2 MG/ML SYRINGE IV PRN ×2 (11:14→23:41)
[2023-06-19] MEDS: Morphine ORAL CONCENTRATE 5 MG/0.25 ML ORAL.SYRIN SL PRN (17:30)
[2023-06-19] MEDS ORDERED: Ondansetron 4 mg VIAL 2 MG/ML 2 ml VIAL IV PRN (23:44)
[2023-06-20] MEDS: Morphine 2 MG/ML SYRINGE IV PRN ×2 (06:40→11:26)
[2023-06-20 09:59] VITALS: BP 134/66
[2023-06-20] MEDS: Morphine ORAL CONCENTRATE 5 MG/0.25 ML ORAL.SYRIN SL PRN (09:59)
[2023-06-20] MEDS: Polyethylene Glycol 3350 17 GM PACKET PO SCH (10:03)
== END 2023-06-20 14:45 | DRG 70 ==
LOC: EDHOLD 17:23 → ED 17:23 → SUATTDRO 06-11 00:38 → MEDTELE 06-11 14:07 → SUATTDRO 06-11 17:16 → MEDTELE 06-11 19:45
PROVIDERS: ADMIT Student in an Organized Health Care Education/Training Program; ATTEND Hospitalist